=== PATIENT | male | born 1980 | race Caucasian/White ===

== ENCOUNTER → 2021-06-21 14:36 | Outpatient (BNVA) | payer BC, SELFPAY | PROVIDERS: PCP Hospitalist; Visit Provider Physician Assistant Surgical ==

== ENCOUNTER → 2021-06-26 08:17 | Outpatient (BNVA) | payer BC, SELFPAY | PROVIDERS: PCP Hospitalist; Visit Provider Surgery ==

== ENCOUNTER 2021-06-28 14:05 | Outpatient (REF) | payer BC, SELFPAY ==
--- NOTE | ~2021-06-28 | XR_ITS ---
EXAMINATION: XR CHEST CLINICAL INFORMATION: Obesity COMPARISON: Previous chest x-ray September 2019 TECHNIQUE: 2 views of the chest were obtained. FINDINGS: The cardiac and mediastinal contours are normal. The lungs are clear. There is no pleural effusion or pneumothorax. There are degenerative changes of the spine. XR/XR chest 2V IMPRESSION: No evidence for acute disease in the chest.
--- NOTE | 2021-06-28 14:26 | ECG_ITS ---
Test Reason : E66.01 Blood Pressure : / mmHG Vent. Rate : 079 BPM Atrial Rate : 079 BPM P-R Int : 170 ms QRS Dur : 090 ms QT Int : 372 ms P-R-T Axes : 002 061 018 degrees QTc Int : 426 ms Poor data quality Normal sinus rhythm Normal ECG When compared with ECG of 16-DEC-2006 04:47, Inferior leads T waves have improved Referred By: Bhavik Mathews Electronically Signed By:ERIK STANFORD MD
== END 2021-06-28 14:06 | disposition home or self-care (01) ==
LOC: HO.XRAY 14:05
PROVIDERS: PCP Hospitalist; Visit Provider Surgery
DX: E66.01 Morbid (severe) obesity due to excess calories (principal); E11.9 Type 2 diabetes mellitus without complications; I10 Essential (primary) hypertension; M54.9 Dorsalgia, unspecified
CPT/HCPCS: 71046; 93005

== ENCOUNTER 2021-06-29 09:14 | Outpatient (REF) | payer BC, SELFPAY ==
[2021-06-29 09:38] LABS: MANUAL DIFF FLAG NO
[2021-06-29 11:05] LABS: Basophils Percent Auto 0.8 % (0-2); Eosinophils Absolute Auto 0.3 X10*3/uL (0.0-0.4); Eosinophils Percent Auto 5.1 % (0-4); Hematocrit 42.5 % (42.0-52.0); Hemoglobin 14.1 g/dl (14.0-18.0); Imm Gran Abs Auto 0.01 X10*3/uL (0.00-0.03); Imm Gran Pct Auto 0.2 % (0.0-0.4); Lymphocytes Absolute Auto 1.5 X10*3/uL (1.2-4.9); Lymphocytes Percent Auto 28.4 % (20-40); Mean Corpuscular HGB Conc 33.2 g/dl (31.0-36.0); Mean Corpuscular Hemoglobin 31.3 pg (27.0-33.0); Mean Corpuscular Volume 94.2 fL (80.0-98.0); Mean Platelet Volume 10.3 fL (9.4-12.4); Monocytes Absolute Auto 0.5 X10*3/uL (0.1-1.2); Monocytes Percent Auto 10.3 % (2-11); Neutrophils Absolute Auto 2.8 x10*3/uL (2.0-8.3); Neutrophils Percent Auto 55.2 % (45-73); Platelet Count 271 X10*3/uL (160-400); Red Blood Count 4.51 X10*6/uL (4.60-5.80); Red Cell Distribution Width 12.2 % (11.0-16.0); White Blood Count 5.1 X10*3/uL (4.8-10.8)
[2021-06-29 11:23] LABS: Estimated Average Glucose 140 mg/dL; Hemoglobin A1c % 6.5 %
[2021-06-29 11:25] LABS: Alanine Aminotransferase 44 U/L (0-40); Albumin Level 4.3 g/dL (3.5-5.0); Alkaline Phosphatase 69 U/L (39-117); Anion Gap 13 (12-20); Aspartate Amino Transferase 35 U/L (5-37); Bilirubin Total 0.8 mg/dL (0.0-1.0); Blood Urea Nitrogen 9 mg/dL (9-16); C Reactive Protein 0.25 mg/dL (< or = 0.50); Calcium 9.2 mg/dL (8.4-10.2); Carbon Dioxide 27 mmol/L (22-29); Chloride 102 mmol/L (96-108); Cholesterol 142 mg/dL; Estimated Glomerular Filt Rate > 60; Glucose Random 104 mg/dL (60-115); HDL Cholesterol 41 mg/dL; Iron 118 mcg/dL (45-160); LDL Cholesterol Calculated 78 mg/dl; Percent Iron Saturation 30 % (15-50); Potassium 4.8 mmol/L (3.3-5.1); Sodium 137 mmol/L (135-145); Total Iron Binding Capacity 391 mcg/dL (228-428); Total Protein 7.4 g/dL (6.5-8.0); Triglycerides 119 mg/dL; Unsaturated Iron Binding 273 ug/dL
[2021-06-29 11:37] LABS: Ferritin 278 ng/mL (20-250); Insulin 26 uU/mL (2-29); TSH reflex Free T4 0.89 uIU/mL (0.32-4.0); Vitamin D 25-OH Total 13.7 ng/mL (>30)
[2021-07-01 03:50] LABS: Folate 18.2 ng/mL (> or = 4.0); Vitamin B12 461 pg/mL (200-900)
[2021-07-01 13:57] LABS: Calcium (PTHI) 9.1 mg/dL (8.6-10.3); PTHI 62 pg/mL (14-64)
[2021-07-02 15:46] LABS: Zinc 80 mcg/dL (60-130)
[2021-07-03 21:27] LABS: Vitamin A 36 mcg/dL (38-98)
[2021-07-04 10:35] LABS: Vitamin B1 10 nmol/L (8-30)
== END 2021-06-29 09:15 | disposition home or self-care (01) ==
LOC: HO.LAB 09:14
PROVIDERS: PCP Hospitalist; Visit Provider Surgery
DX: E66.01 Morbid (severe) obesity due to excess calories (principal); E11.9 Type 2 diabetes mellitus without complications; I10 Essential (primary) hypertension; M54.9 Dorsalgia, unspecified
CPT/HCPCS: 36415; 80053; 80061; 82306; 82607; 82728; 82746; 83036; 83525; 83540; 83970; 84425; 84443; 84590; 84630; 85025; 86140

== ENCOUNTER 2021-07-04 08:49 | Outpatient (REF) | payer BC, SELFPAY ==
[2021-07-05 09:03] LABS: H Pylori Breath Test Positive (Negative)
== END 2021-07-04 08:50 | disposition home or self-care (01) ==
LOC: HO.LNP 08:49
PROVIDERS: Surgery; PCP Hospitalist; Visit Provider Physician Assistant Surgical
DX: E66.01 Morbid (severe) obesity due to excess calories (principal); E11.9 Type 2 diabetes mellitus without complications; I10 Essential (primary) hypertension; M54.9 Dorsalgia, unspecified; Z11.0 Encounter for screening for intestinal infectious diseases
CPT/HCPCS: 83013

== ENCOUNTER → 2021-07-24 08:07 | Outpatient (BNVA) | payer BC, SELFPAY | PROVIDERS: PCP Hospitalist; Visit Provider Surgery ==

== ENCOUNTER → 2021-07-31 14:43 | Outpatient (BNVA) | payer BC, SELFPAY | PROVIDERS: PCP Hospitalist; Referring Provider Hospitalist; Visit Provider Dietitian, Registered | DX: E66.9 Obesity, unspecified (principal); E11.9 Type 2 diabetes mellitus without complications; Z68.38 Body mass index [BMI] 38.0-38.9, adult | CPT/HCPCS: 97802 ==

== ENCOUNTER 2021-08-05 15:27 | Outpatient (REF) | payer BC, SELFPAY ==
[2021-08-08 11:03] LABS: H Pylori Breath Test Negative (Negative)
== END 2021-08-05 15:28 | disposition home or self-care (01) ==
LOC: HO.LNP 15:27
PROVIDERS: PCP Hospitalist; Visit Provider Physician Assistant Surgical
DX: Z01.818 Encounter for other preprocedural examination (principal)
CPT/HCPCS: 83013

== ENCOUNTER → 2021-08-16 08:08 | Outpatient (BNVA) | payer BC, SELFPAY | PROVIDERS: PCP Hospitalist; Visit Provider Surgery ==

== ENCOUNTER 2021-08-19 07:57 | Outpatient (REF) | payer BC, SELFPAY ==
--- NOTE | ~2021-08-19 | FL_ITS ---
EXAMINATION: XR FLUOROSCOPY UPPER GI WITH AIR CLINICAL INFORMATION: Morbid to severe obesity due to excess calories. COMPARISON: None TECHNIQUE: Routine upper GI air-contrast study was performed in upright and lying position. FINDINGS: Following oral administration of thick barium and effervescent granules is normal propagation bolus from the oral cavity through the pharynx, esophagus into stomach without any evidence of obstruction, narrowing or stricture. On placing patient supine and prone lying the course, caliber and peristalsis of stomach, duodenal bulb and the sweep is normal. The mucosal pattern of the stomach and the duodenum is normal. No gastroesophageal reflux or hiatal hernia seen. There are minimal increased gastric secretions visualized. FLUOROSCOPY TIME: 1.4 minutes. DOSE AREA PRODUCT: 31.083 uGy-m2 (microgray-meter squared). FL/FL upper GI w air IMPRESSION: Unremarkable upper GI air-contrast study except for mild increased secretions.
--- NOTE | ~2021-08-19 | US_ITS ---
EXAMINATION: US COMPLETE ABDOMEN WITH LIVER ELASTOGRAPHY CLINICAL INFORMATION: Morbid obesity COMPARISON: CT abdomen pelvis 05/21/2018 TECHNIQUE: Real-time imaging of the abdominal viscera. Noninvasive ultrasound liver fibrosis assessment is performed using [employer] ElastPQ point quantification shear wave elastography (2D-SWE) with a C5-2 MHz transducer. Multiple elastography samples are obtained. FINDINGS: PANCREAS: Visualized portions of pancreas are normal in appearance. ABDOMINAL AORTA: The proximal, middle, and distal aortic segments are normal in caliber. INFERIOR VENA CAVA: Visualized portions are normal. LIVER: The liver demonstrates normal size and contour. Liver echogenicity is mildly increased diffusely. No focal lesion or intrahepatic biliary duct dilatation. The right lobe measures 16.2 cm in length. The left lobe measures 11.3 cm in length. Portal flow is hepatopedal Shear wave liver elastography median stiffness is 1.65 m/s (reference: normal median stiffness is 1.3 m/s or less). IQR/median stiffness to assess sampling precision is 0.12 (reference: good quality data set is IQR/median stiffness of 0.15 or less). GALLBLADDER: Normal. The gallbladder is physiologically distended without evidence of stones, sludge, polyps, wall thickening or pericholecystic fluid. Negative sonographic Resendiz's sign. COMMON BILE DUCT: Normal in caliber measuring 0.4 cm in diameter. RIGHT KIDNEY: Normal. No hydronephrosis. No renal calculi or focal parenchymal lesions. The kidney measures 13 cm in maximum dimension. LEFT KIDNEY: Normal. No hydronephrosis. No renal calculi or focal parenchymal lesions. The kidney measures 12.7 cm in maximum dimension. SPLEEN: Normal. The spleen measures 10.3 cm in maximum dimension. FREE FLUID: None. US/US abdomen comp w elastography IMPRESSION: 1. Liver echogenicity is mildly increased diffusely. This is a nonspecific finding but most suggestive of hepatic steatosis. Correlation with liver enzymes recommended. 2. Liver elastography: In the absence of other known clinical signs, measurements rule out compensated advanced chronic liver disease. If there are known clinical signs, further testing may be needed for confirmation. REFERENCE: Society of Radiologists in Ultrasound Liver Stiffness Thresholds (2020): LIVER STIFFNESS THRESHOLDS: *Liver Stiffness equal or less than 1.3 m/s: High probability of being normal. *Liver Stiffness less than 1.7 m/s: In the absence of other known clinical signs, rules out compensated advanced chronic liver disease. *Liver Stiffness 1.7-2.1 m/s: Suggestive of compensated advanced chronic liver disease but need further test for confirmation. *Liver Stiffness over 2.1 m/s: Rules in compensated advanced chronic liver disease. *Liver Stiffness over 2.4 m/s: Suggestive of clinically significant portal hypertension. QUALITY OF DATA SET: *IQR/Median value equal or less than 0.15 implies a quality data set. *IQR/Median value over 0.15 implies a poor quality data set. SIGNIFICANT CHANGE FROM PRIOR EXAM: Significant change if liver stiffness measurement is 10% or greater from prior exam. OTHER CONSIDERATIONS: The stage of liver fibrosis may be overestimated in the setting of acute hepatitis, liver inflammation, elevated liver function tests, hepatic vascular congestion, obstructive cholestasis, non-fasting state, and infiltrative diseases such as amyloidosis and lymphoma. In some patients with NAFLD, the liver stiffness thresholds for compensated advanced chronic liver disease may be lower. In causes other than viral hepatitis and NAFLD, liver stiffness thresholds are not well established.
== END 2021-08-19 07:58 | disposition home or self-care (01) ==
LOC: HO.US 07:57
PROVIDERS: PCP Hospitalist; Visit Provider Surgery
DX: Z01.818 Encounter for other preprocedural examination (principal); E66.01 Morbid (severe) obesity due to excess calories; E11.9 Type 2 diabetes mellitus without complications; I10 Essential (primary) hypertension; M54.9 Dorsalgia, unspecified
CPT/HCPCS: 74246; 76705; 76981

== ENCOUNTER → 2021-08-23 13:13 | Outpatient (BNVA) | payer BC, SELFPAY | PROVIDERS: PCP Hospitalist; Referring Provider Hospitalist; Visit Provider Physician Assistant ==

== ENCOUNTER 2021-08-29 09:00 | Inpatient (IN) | payer BC, SELFPAY ==
[2021-08-21 10:24] VITALS: BMI 35.7
[2021-08-22 06:23] LABS: MANUAL DIFF FLAG NO
[2021-08-22 07:32] LABS: Basophils Percent Auto 0.7 % (0-2); Eosinophils Absolute Auto 0.9 X10*3/uL (0.0-0.4); Eosinophils Percent Auto 16.9 % (0-4); Hematocrit 42.9 % (42.0-52.0); Hemoglobin 14.3 g/dl (14.0-18.0); Imm Gran Abs Auto 0.02 X10*3/uL (0.00-0.03); Imm Gran Pct Auto 0.4 % (0.0-0.4); Lymphocytes Absolute Auto 1.8 X10*3/uL (1.2-4.9); Lymphocytes Percent Auto 32.7 % (20-40); Mean Corpuscular HGB Conc 33.3 g/dl (31.0-36.0); Mean Corpuscular Hemoglobin 30.9 pg (27.0-33.0); Mean Corpuscular Volume 92.7 fL (80.0-98.0); Mean Platelet Volume 10.6 fL (9.4-12.4); Monocytes Absolute Auto 0.6 X10*3/uL (0.1-1.2); Neutrophils Absolute Auto 2.1 x10*3/uL (2.0-8.3); Neutrophils Percent Auto 38.3 % (45-73); Platelet Count 234 X10*3/uL (160-400); Red Blood Count 4.63 X10*6/uL (4.60-5.80); Red Cell Distribution Width 11.9 % (11.0-16.0); White Blood Count 5.4 X10*3/uL (4.8-10.8)
[2021-08-22 07:39] LABS: INTERNATIONAL NORM RATIO 1.1 (0.9-1.1); Prothrombin Time 12.6 SEC (9.9-13.0)
[2021-08-22 07:42] LABS: Partial Thromboplastin Time 34.6 SEC (24.1-38.0)
[2021-08-22 08:06] LABS: Alanine Aminotransferase 28 U/L (0-40); Albumin Level 4.3 g/dL (3.5-5.0); Alkaline Phosphatase 69 U/L (39-117); Anion Gap 11 (12-20); Aspartate Amino Transferase 28 U/L (5-37); Blood Urea Nitrogen 15 mg/dL (9-16); C Reactive Protein 0.54 mg/dL (< or = 0.50); Calcium 9.5 mg/dL (8.4-10.2); Carbon Dioxide 29 mmol/L (22-29); Chloride 102 mmol/L (96-108); Cholesterol 127 mg/dL; Creatinine Clr Calc Pharmacy 146.8; Estimated Glomerular Filt Rate > 60; Glucose Random 82 mg/dL (60-115); HDL Cholesterol 41 mg/dL; LDL Cholesterol Calculated 70 mg/dl; Sodium 138 mmol/L (135-145); Total Protein 7.5 g/dL (6.5-8.0); Triglycerides 81 mg/dL
[2021-08-22 08:15] LABS: Insulin 10 uU/mL (2-29); TSH reflex Free T4 1.38 uIU/mL (0.32-4.0)
[2021-08-22 08:44] LABS: Estimated Average Glucose 105 mg/dL; Hemoglobin A1c % 5.3 %
--- NOTE | 2021-08-23 23:37 | MHC.SHP ---
Pre-Procedural Eval Section A Date of Service: 08/23/21 The patient is an INPATIENT: Yes The History & Physical has been completed within 30 days and I have reviewed it.: Yes Section B Chief Complaint: obesity Relevant Family History (Specify if Yes): No Relevant Social History: None Present Medications: None Medical History: No relevant PMH History of Previous Operations: No relevant previous surgery Allergies: Allergies Allergy/AdvReac Type Severity Reaction Status Date / Time No Known Allergies Allergy Unverified 08/21/21 09:53 [No Known Allergies*] Review of Systems Sugical H&P ROS: Negative: Constitution, Cardiovascular, Respiratory, Neurological, Psychiatric, Hem-Onc, Allergic/Immunologic, Gastrointestinal, Genitourinary, Musculoskeletal, Integumentary, Endocrine and Eyes/Ears/Nose/Throat Exam Surgical H&P Exam: Normal: HEENT, Normal: Heart, Normal: Lungs, Normal: Extremities, Normal: Abdomen, Normal: Skin and Normal: Neurological Plan Diagnosis/Plan: Unchanged I have reviewed the history and physical and performed a pertinent physical examination on my patient. No changes have occurred unless specified.
--- NOTE | 2021-08-28 10:36 | P.CONAN_ITS ---
Documented by User: Janie Schofield NP 08/28/21 10:37 HPI - Anesthesia Eval Consult details Narrative: 40yo M for Gastrectomy Sleeve,EGD,poss diaphragmatic hernia,poss ventral hernia,poss open, PMFSH Active Problems Active Problems: All Active Problems (Updated 08/21/21 @ 10:16 by Asha Padilla RN) Vitamin D deficiency (Acute) Vitamin A deficiency (Acute) Vitamin B12 deficiency (Acute) Obesity (Acute) BMI 38.0-38.9,adult (Acute) Back pain (Acute) Hypertension (Acute) Non-insulin dependent type 2 diabetes mellitus (Acute) Morbid obesity (Acute) Past Medical History Medical History Back pain Hypertension Morbid obesity Non-insulin dependent type 2 diabetes mellitus Psoriasis Sleep apnea Family History Family History Mother No problems noted. Father No problems noted. Sister No problems noted. Sister No problems noted. Sister Obesity Thyroid condition Brother No problems noted. Brother No problems noted. Brother No problems noted. Son No problems noted. Surgical History Surgical History Hx of colonoscopy No significant past surgical history Social History Social History Are you a primary director of health care marketing to a significant other at home: No Do you presently have visiting nurse or other home services: No Alcohol intake: former Patient Tobacco Use Status: Former Tobacco user Quit Date: 2018 Use of substances other than those prescribed or required for medical reasons: No Have you been hit, kicked, punched, or otherwise hurt by someone within the past year? If so, by whom?: No Are you DNR?: No Advance Directives: No Advance Directives Information Provided: Yes (mailed info w/ pre-op instructions) Advance Directives on File: No Recently lost weight without trying: No How much weight loss: 24-33 pounds Eating poorly because of decreased appetite: No Nutrition screen score: 3 Nutrition Risks: No Nutritional Risk Poor oral hygiene: No Meds Allergies Allergy/AdvReac Type Severity Reaction Status Date / Time No Known Allergies Allergy Verified 08/29/21 08:49 [No Known Allergies*] Home Medications Medication Instructions Recorded Confirmed Last Taken Type acetaminophen 500 mg tablet 500 mg PO Q6H PRN 08/21/21 08/29/21 08/15/21 History esomeprazole magnesium 20 mg 20 mg PO DAILY 08/21/21 08/29/21 08/28/21 History capsule,delayed release (Nexium) Exam Exam Date and Time: August 28, 2021 1036 Height,Weight and Vital Signs: Height 5 ft 9 in Weight 109.769 kg Pertinent Lab Results Pertinent Lab Results: Laboratory Tests 08/22/21 08/22/21 08/22/21 06:20 06:20 06:20 WBC 5.4 RBC 4.63 Hgb 14.3 Hct 42.9 MCV 92.7 MCH 30.9 MCHC 33.3 RDW 11.9 Plt Count 234 MPV 10.6 Immature Gran % (Auto) 0.4 Neut % (Auto) 38.3 L Lymph % (Auto) 32.7 [place] % (Auto) 11.0 Eos % (Auto) 16.9 H Baso % (Auto) 0.7 Lymph # (Auto) 1.8 [place] # (Auto) 0.6 Eos # (Auto) 0.9 H Baso # (Auto) 0.0 Abs Immat Gran (auto) 0.02 Absolute Neuts (auto) 2.1 Absolute Nucleated RBC 0.000 Nucleated RBC % (auto) 0.0 PT 12.6 INR 1.1 APTT 34.6 Sodium 138 Potassium 4.0 Chloride 102 Carbon Dioxide 29 Anion Gap 11 L BUN 15 D Creatinine 0.80 Estim Creat Clear Calc 146.8 Estimated GFR > 60 Random Glucose 82 Estimat Average Glucose Hemoglobin A1c % Insulin Level 10 Calcium 9.5 Total Bilirubin 1.0 AST 28 ALT 28 Alkaline Phosphatase 69 C-Reactive Protein 0.54 H Total Protein 7.5 Albumin 4.3 Triglycerides 81 Cholesterol 127 LDL Cholesterol, Calc 70 HDL Cholesterol 41 TSH 1.38 Blood Type Antibody Screen 08/22/21 08/22/21 06:20 06:20 WBC RBC Hgb Hct MCV MCH MCHC RDW Plt Count MPV Immature Gran % (Auto) Neut % (Auto) Lymph % (Auto) [place] % (Auto) Eos % (Auto) Baso % (Auto) Lymph # (Auto) [place] # (Auto) Eos # (Auto) Baso # (Auto) Abs Immat Gran (auto) Absolute Neuts (auto) Absolute Nucleated RBC Nucleated RBC % (auto) PT INR APTT Sodium Potassium Chloride Carbon Dioxide Anion Gap BUN Creatinine Estim Creat Clear Calc Estimated GFR Random Glucose Estimat Average Glucose 105 Hemoglobin A1c % 5.3 Insulin Level Calcium Total Bilirubin AST ALT Alkaline Phosphatase C-Reactive Protein Total Protein Albumin Triglycerides Cholesterol LDL Cholesterol, Calc HDL Cholesterol TSH Blood Type O Positive Antibody Screen NEGATIVE Narrative Narrative: EKG 06/2021 Vent. Rate : 079 BPM ? ? Atrial Rate : 079 BPM ?? P-R Int : 170 ms? QRS Dur : 090 ms ? ? QT Int : 372 ms ? ? ? P-R-T Axes : 002 061 018 degrees ?? QTc Int : 426 ms ? Poor data quality Normal sinus rhythm Normal ECG When compared with ECG of 16-DEC-2006 04:47, Inferior leads T waves have improved Assessment and Plan Assessment Anesthesia Assessment: Chart Reviewed Documented by User: Eliza Daniel MD 08/29/21 10:10 [facility] Active Problems Active Problems: All Active Problems (Updated 08/21/21 @ 10:16 by Asha Padilla RN) Vitamin D deficiency (Acute) Vitamin A deficiency (Acute) Vitamin B12 deficiency (Acute) Obesity (Acute) BMI 38.0-38.9,adult (Acute) Back pain (Acute) Hypertension (Acute) Non-insulin dependent type 2 diabetes mellitus (Acute. No meds since June Morbid obesity (Acute) Hypoglycemia Past Medical History Medical History Back pain Hypertension Morbid obesity Non-insulin dependent type 2 diabetes mellitus Psoriasis Sleep apnea Family History Family History Mother No problems noted. Father No problems noted. Sister No problems noted. Sister No problems noted. Sister Obesity Thyroid condition Brother No problems noted. Brother No problems noted. Brother No problems noted. Son No problems noted. Family history of problems with anesthesia: No Surgical History Surgical History Hx of colonoscopy No significant past surgical history History of Problems with Anesthesia: No Social History Social History Are you a primary director of health care marketing to a significant other at home: No Do you presently have visiting nurse or other home services: No Alcohol intake: former Patient Tobacco Use Status: Former Tobacco user Quit Date: 2018 Use of substances other than those prescribed or required for medical reasons: No Have you been hit, kicked, punched, or otherwise hurt by someone within the past year? If so, by whom?: No Are you DNR?: No Advance Directives: No Advance Directives Information Provided: Yes (mailed info w/ pre-op instructions) Advance Directives on File: No Recently lost weight without trying: No How much weight loss: 24-33 pounds Eating poorly because of decreased appetite: No Nutrition screen score: 3 Nutrition Risks: No Nutritional Risk Poor oral hygiene: No Meds Allergies Allergy/AdvReac Type Severity Reaction Status Date / Time No Known Allergies Allergy Verified 08/29/21 08:49 [No Known Allergies*] Home Medications Medication Instructions Recorded Confirmed Last Taken Type acetaminophen 500 mg tablet 500 mg PO Q6H PRN 08/21/21 08/29/21 08/15/21 History esomeprazole magnesium 20 mg 20 mg PO DAILY 08/21/21 08/29/21 08/28/21 History capsule,delayed release (Nexium) Exam Height,Weight and Vital Signs: Height 5 ft 9 in Weight 109.769 kg Vital Signs Temp Pulse Resp BP Pulse Ox 08/29/21 09:00 97.1 F 61 16 116/60 100 Pertinent Lab Results Pertinent Lab Results: Laboratory Tests 08/22/21 08/22/21 08/22/21 06:20 06:20 06:20 WBC 5.4 RBC 4.63 Hgb 14.3 Hct 42.9 MCV 92.7 MCH 30.9 MCHC 33.3 RDW 11.9 Plt Count 234 MPV 10.6 Immature Gran % (Auto) 0.4 Neut % (Auto) 38.3 L Lymph % (Auto) 32.7 [place] % (Auto) 11.0 Eos % (Auto) 16.9 H Baso % (Auto) 0.7 Lymph # (Auto) 1.8 [place] # (Auto) 0.6 Eos # (Auto) 0.9 H Baso # (Auto) 0.0 Abs Immat Gran (auto) 0.02 Absolute Neuts (auto) 2.1 Absolute Nucleated RBC 0.000 Nucleated RBC % (auto) 0.0 PT 12.6 INR 1.1 APTT 34.6 Sodium 138 Potassium 4.0 Chloride 102 Carbon Dioxide 29 Anion Gap 11 L BUN 15 D Creatinine 0.80 Estim Creat Clear Calc 146.8 Estimated GFR > 60 Random Glucose 82 Estimat Average Glucose Hemoglobin A1c % Insulin Level 10 Calcium 9.5 Total Bilirubin 1.0 AST 28 ALT 28 Alkaline Phosphatase 69 C-Reactive Protein 0.54 H Total Protein 7.5 Albumin 4.3 Triglycerides 81 Cholesterol 127 LDL Cholesterol, Calc 70 HDL Cholesterol 41 TSH 1.38 Blood Type Antibody Screen 08/22/21 08/22/21 06:20 06:20 WBC RBC Hgb Hct MCV MCH MCHC RDW Plt Count MPV Immature Gran % (Auto) Neut % (Auto) Lymph % (Auto) [place] % (Auto) Eos % (Auto) Baso % (Auto) Lymph # (Auto) [place] # (Auto) Eos # (Auto) Baso # (Auto) Abs Immat Gran (auto) Absolute Neuts (auto) Absolute Nucleated RBC Nucleated RBC % (auto) PT INR APTT Sodium Potassium Chloride Carbon Dioxide Anion Gap BUN Creatinine Estim Creat Clear Calc Estimated GFR Random Glucose Estimat Average Glucose 105 Hemoglobin A1c % 5.3 Insulin Level Calcium Total Bilirubin AST ALT Alkaline Phosphatase C-Reactive Protein Total Protein Albumin Triglycerides Cholesterol LDL Cholesterol, Calc HDL Cholesterol TSH Blood Type O Positive Antibody Screen NEGATIVE Laboratory Results - last 24 hr 08/28/21 08/29/21 13:35 08:41 POC Glucose 55 L* COVID-19 ([facility]) Negative COVID-19 Clin Com See Note Airway Mallampati Class: II TM Dist: >3cm Loose/Missing/Broken Teeth: Yes (1 extraction ) Heart: RRR Lungs: ? slight wheeze Right mid Other: No recent cough, cold, fever. Patient does not smoke. Does not use inhaler. Breathing feels Ok. O2 sats 100% in RA Patient with blood sugar of 55. Asymptomatic. Rx with D5W. Repeat BS 77 Assessment and Plan Final Anesthetic Review Family History of Problems with Anesthesia: No History of Problems with Anesthesia: No NPO: Yes ASA Class: III Final Preanesthetic Review: No Changes in Pt Med Stat, Meds/Allgs Chart Reviewed, Consent Obtained/Reviewed and Anes Risks/Benef Reviewed Patient Risk: Intermediate Procedure Risk: Intermediate Assessment/Block/Sedation in SS: Assess/Block/Sedation-SS Anesthetic Plan Anesthetic Plan: GA Disposition: Standard PACU and Inp. Admit - Standard Bed
[2021-08-28 14:01] LABS: COVID-19 Test Negative (Negative); IDNOW Serial# 9DD0AD1C
[2021-08-29] VITALS (12 sets, daily range): BP systolic 116–163; BP diastolic 60–95; PULSE 61–96; RESP 14–18; TEMP 36.2–37.1; O2SAT 94–100
[2021-08-29] MEDS: Dextrose 5 % 250 ML 500 ML IV (09:00)
[2021-08-29 09:23] LABS: Glucose, Whole Blood 55 mg/dL (60-115)
[2021-08-29 10:03] LABS: Glucose, Whole Blood 77 mg/dL (60-115)
--- NOTE | 2021-08-29 10:05 | PC.NURSE ---
Patient arrived to [facility]. Stated my blood sugar was 56 this morning . Patient asymptomatic and stated he feels fine . Blood Sugar taken, results 55. Dr. Daniel notified. New order for Dextrose to be hung. See orders. Patient remained asymptomatic during infusion. Blood sugar rechecked after, results 77. Dr. Daniel notified.
[2021-08-29] MEDS: Lactated Ringers 1,000 ML 999 ML IV (10:13)
--- NOTE | 2021-08-29 13:04 | PM.DS ---
DS: Providers Provider Date of Service: 08/30/21 Date of admission: 08/29/21 09:00 Primary care physician: Saul Godinez DS: Summary Hospital Course Hospital Course: ADMITTING DIAGNOSIS: morbid obesity, HTN, NIDDM DISCHARGE DIAGNOSIS: same, s/p laparoscopic sleeve gastrectomy PAST SURGICAL HISTORY: none PROCEDURE: upper endoscopy, laparoscopic sleeve gastrectomy DISCHARGE SUMMARY: History of Present Illness: The patient is a 40 year-old woman with a BMI of 42.1 kg/m2 and associated co-morbidities as described above. The patient had extensive work-up,lost 26 lbs preoperatively and was electively scheduled for laparoscopic, possible open sleeve gastrectomy and gastropexy. Risks and complications of the surgery were discussed with the patient in advance, particularly the possibility of , pulmonary embolism, anastomotic leak, bleeding, bowel injury, GERD, cardiac, renal or pulmonary complications. The patient understood all the risks and was in agreement with the surgical plan. Hospital Course: The patient underwent an uneventful laparoscopic sleeve gastrectomy with gastropexy and repair of diaphragmatic hernia on the day of admission. Postoperatively, the patient was transferred to the surgical floor. The patient received IV Acetaminophen and IV dilaudid for pain control. Patient was started on bariatric phase 1 diet POD #0. On postoperative day one, the patient was feeling well without nausea, vomiting, fevers, or tachycardia. The patient had some mild incisional pain and the abdomen was soft. On the morning of postoperative day one, the patient was continued on 1 ounce of water or ice every half hour. During the day, the patient did fairly well, having some incisional pain, but able to ambulate adequately and to tolerate liquids well. Since the patient is doing well, we decided that the patient was ready to be discharged. The patient was given instructions to follow-up with me next week and to call my office for any fever over 101, persistent abdominal pain, nausea, vomiting, GERD, symptoms of DVT such as calf tenderness, or leg swelling, or pulmonary embolism such as chest pain or shortness of breath. The patient was also instructed to drink 40-60 ounces of liquids per day using the 1-ounce cups. The patient had been given prescriptions for Tylenol for pain, Zofran prn for nausea, and pantoprazole and carafate previously. The patient was encouraged to ambulate and use the incentive spirometer. The patient was allowed to shower, but no baths, and encouraged to stay active at home. All of these instructions were given to the patient personally. All questions were answered and the patient understood all instructions, the instructions were also given to the patient in print. Time Spent with Patient Time attestation: Total time spent providing and/or coordinating discharge services: Discharge coordination time: Less than 30 minutes Quality: Stroke Does the patient have a stroke diagnosis?: No Physical Exam Vital Signs: Vital Signs: Last Vital Signs Temp 97.1 F 08/29/21 09:00 Pulse 61 08/29/21 09:00 Resp 16 08/29/21 09:00 BP 116/60 08/29/21 09:00 Pulse Ox 100 08/29/21 09:00 BMI result Body Mass Index 35.7 DS: Data Data Completed and Pending Pending studies at discharge: Pending at discharge 08/29/21 12:14 Surgical [PTH] Routine Labs on day of discharge: Laboratory Results - last 24 hr 08/28/21 08/29/21 08/29/21 13:35 08:41 09:59 POC Glucose 55 L* 77 COVID-19 ([facility]OS) Negative COVID-19 Clin Com See Note Discharge Plan Discharge Anticipated Discharge Date/Time: 08/30/21 10:01 Patient Disposition: Home, Self-Care Discharge Diagnosis: s/p sleeve gastrectomy Referrals: Saul Godinez [Primary Care Provider] - 1 Week Discharge Medications: Continued acetaminophen 500 mg Tablet 500 mg PO Q6H PRN (Reason: Pain) 0RF pantoprazole 40 mg tablet,delayed release (DR/EC) 40 mg PO DAILY Qty: 30 2RF sucralfate 100 mg/mL suspension 10 ml PO BID Qty: 400 2RF ondansetron HCl 4 mg tablet 4 mg PO Q12H Qty: 20 0RF Discontinued cholecalciferol (vitamin D3) 125 mcg (5,000 unit) capsule 125 mcg PO DAILY Qty: 30 2RF vitamin A palmitate 10,000 unit capsule 10,000 unit PO .COMPLEX Qty: 30 1RF Rx Instructions: 10,000 units PO one per day; mecobalamin (vitamin B12) 1,000 mcg tablet,disintegrating 1,000 mcg sublingual DAILY Qty: 30 2RF Rx Instructions: place tablet under tongue and allow to dissolve for at least30 secs before swallowing esomeprazole magnesium [Nexium] 20 mg Capsule,Delayed Release(Dr/Ec) 20 mg PO DAILY 0RF polyethylene glycol 3350 [Miralax] 17 gram powder in packet 17 g PO DAILY Qty: 14 0RF Rx Instructions: Mix each packet with 8oz of water and do 7 packets on 08/27/21 and another 7 packets on 08/28/21 Discharge Orders: Discharge Order (Routine); Ordered 08/30/21 Ordered By: Bhavik Mathews Diet: other Activity on Discharge: No heavy lifting Stand Alone Forms: Patient Portal Discharge page Care Plan Goals: weight loss Health Concerns: morbid obesity Plan of Treatment: No tub baths, sex or returning to work until discussed at first post op appointment. No exercise, alcohol, tobacco or illegal drug use. Continue to use incentive spirometer hourly while awake. Walk in home for 5- 10 minutes every 2 hours during the first week. Continue phase 1 diet today and start phase 2 diet tomorrow morning. Follow all instructions in the bariatric handbook and call with any questions. 1. Please call your doctor or come back to the emergency room should any new symptoms arise. 2. You will receive a courtesy call from [facility] 24-48 hours after discharge. 3. Activity: abstain from alcohol, practice limited stair climbing, no bending, no driving, no exercise, no illicit substances, no lifting, no sex, no tub bath, no work. 4. Diet: continue as discussed with Dr. Mathews. 5. Dressing Change/Wound Care: Do not change or remove surgical dressings unless they are wet or soiled. 6. Call your doctor if: - Your temperature exceeds 101.5 F - You experience excessive pain or swelling - You have an unexpected reaction to medication - You have excessive bleeding - You experience continued vomiting/nausea - Your incision begins to separate - Your incision shows signs of infection such as increased redness, swelling, excessive pain, heat, or drainage (light blood or clear fluid is normal) 7. General instructions: No lifting greater than 5 lbs for the next 4 weeks[address] driving within 24 hours of taking narcotic pain medications. If you do not move your bowels in the next 2 days, please take milk of magnesia over the counter. Please follow the post op diet and do not advance your diet until you are seen in the office in about 2 weeks. Please walk around your home every hour or two to prevent blood clots from forming in your legs. You do not need to wake from sleeping to walk. Please sleep in a bed or couch to prevent kinking at the hips and knees. Please take your incentive spirometer (your lung mva reactor operator head) home with you and use it for the next few days to prevent pneumonias. You may shower, no hot tubs, baths or swimming pools. Please call the office with any questions or concerns such as increasing abdominal pain, fever, chills, shortness of breath, chest pain, leg pain or swelling, or redness or drainage from your incisions. Do not hesitate to contact the office with any questions at . The patient's medical history has been reviewed and they are considered low risk for post op DVT and therefore DVT prophylaxis is not considered necessary. Travel after surgery was reviewed. The patient has not disclosed any travel plans during the first 30 days after surgery and they have been advised that within the first 30 days after surgery any bus, plane, train or car travel over 2 hours in duration is contraindicated due to the possibility of developing blood clots from immobility. Any travel, needs to include periods of ambulation of 10 minutes in duration every 2 hours. The patient was instructed to discuss any plans for travel during this period with their bariatric surgeon. Assessment: stable, post op sleeve gastrectomy
--- NOTE | 2021-08-29 13:14 | P.BOP_ITS ---
Brief Operative Note Date of Service: 08/29/21 Pre-op diagnosis: Severe obesity with comorbidities (see below) Post-op diagnosis: same Procedure: INITIAL PATIENT BMI ON PRESENTATION AT OUR OFFICE: 42.2 kg/m2 LAST BMI BEFORE SURGERY: 36.3 kg/m2 COMORBIDITIES: sleep apnea on CPAP, non-insulin dependent diabetes, hypertension, back pain, liver steatosis, liver fibrosis ?The patient presented to the Weight Management Program with significant obesity that was negatively impacting the patient's comorbidities as listed above.? The program is a phased program with a special focus on preoperative medical weight management to promote substantial weight loss and prepare the patients for the second phase of the program: bariatric surgery. The patient participated in an intensive weekly lifestyle ?intervention and exercise program during which the patient ?has lost between the initial office visit and the last preoperative visit 25.7lbs, or 9.41% of initial actual body weight. It was deemed appropriate for the patient to now have bariatric surgery. In light of the current Covid-19 pandemic and the well documented strong association of obesity and increased risk of worse outcomes if infected with Covid-19 (REFERENCES: https ://pubmed.ncbi.nlm.nih.gov/46415170/ ,? https://pubmed.ncbi.nlm.nih.gov/40506650/ ), any delay in undergoing bariatric surgery may lead to the patient's worsening health condition and increased?risk of more severe Covid-19 disease if infected. In addition a recent?study from [facility] published in JOSE [facility] Surgery on 07/08/2021 ([email or web address]) found that, among patients with obesity, substantial weight loss achieved with surgery was associated with improved outcomes of COVID-19 infection. The findings suggest that obesity can be a modifiable risk factor for the severity of COVID-19 infection. In addition, the patient met the BMI-criteria for bariatric surgery based on the BMI on initial presentation. The patient should not be penalized for achieving such weight loss because ?it is not sustainable long-term without surgical intervention and it was achieved in preparation for bariatric surgery ?under my direction and based on my published research ([email or web address]).[email or web address] and? https://www.soard.org/article/[email or web address](31)54430-X/pdf ) ?that a 10% preoperative weight loss improves long-term weight loss after surgery and reduces perioperative complications.? Insurance carriers such as [facility] have endorsed my recommendations ?and have included in their policies criteria to include a 10% preoperative weight loss requirement. PROCEDURE: Esophago-gastroscopy, laparoscopic sleeve gastrectomy and laparoscopic gastropexy INDICATIONS: This is a 40 year-old male who was electively scheduled for laparoscopic, possibly open sleeve gastrectomy. The risks and complications of the procedure were discussed with the patient in advance, particularly the possibility of ; pulmonary embolism; staple line leak; bleeding; GERD; cardiac, pulmonary, or renal complications; as well as long-term problems such as insufficient weight loss, vitamin deficiency, strictures, or ulcers. The patient understood all the risks, and was in agreement to proceed with surgery. DESCRIPTION OF PROCEDURE: After informed consent was obtained from the patient, the patient was given preoperative antibiotics, and was transferred to the operating room. After successful induction of general anesthesia, pneumatic compression devices were p laced on both lower extremities. An upper endoscopy was performed next. The oropharynx and esophagus appeared to be within normal limits. There was no diaphragmatic hernia present consistent with the findings of the preoperative upper GI. The stomach was entered. Then after all fluid and air were suctioned and the stomach was fully decompressed, the scope was withdrawn and secured in the mid esophagus. The patient was then prepped and draped in the usual sterile manner, and abdominal access was established at the right upper quadrant with the Paras technique. A 12 mm blunt port was inserted, and the abdomen was insufflated with CO2 to a pressure of 15 mmHg. Under direct visualization, additional ports were placed, specifically two 5 mm Versi-step ports to the left upper quadrant, and a 5 mm Versi-Step port to the right upper quadrant. 1% lidocaine plain was used to infiltrate all port sites as well as all fascia defects. Following that, the patient was placed in a steep reverse Trendelenburg position. An additional 5 mm port was placed to the right flank for the Mediflex retractor that was used to retract the left lobe of the liver. The gastro-esophageal fat pad was opened with the ultrasonic device (Thunderbeat, Olympus) and the anterior esophagus and hiatus were exposed. The angle of His was opened with the ultrasonic device the fundus of the stomach from any diaphragmatic and splenic attachments. I then opened the gastrocolic ligament between the transverse colon and the greater curvature of the stomach with the ultrasonic device to enter the lesser sac and facilitate the ligation of the short gastric vessels. I started at a mid-point along the greater curvature and using the Thunderbeat, all short gastric vessels were divided all the way to the angle of His until the left silviano was completely dissected at its entirety. I then divided the gastro-colic ligament distally to a distance of about 3-4 cm proximal to the esophagus. The stomach was then divided transversely with one Endo SERENA-45 purple, two SERENA- 45 orange loads and four SERENA-60 articulating orange loads using the AEON stapler and loads. Every effort was made that the gastric sleeve had a tubular shape and an even caliber throughout. Once the sleeve resection was completed, the staple line of the gastric sleeve was reinforced with Hemoclips. The resected stomach was retrieved without difficulty from the Paras port. A gastropexy was then performed in order to prevent postoperative GERD and partial gastric volvulus. Several interrupted 2.0 Surgidac sutures were placed between the sleeve's staple line and the previously divided greater omentum and gastro-colic ligament using the Endo-Stitch device. ?An upper endoscopy was performed. There was no narrowing at the GE junction. The scope was easily advanced all the way to the pylorus which was clearly visualized. There was no narrowing anywhere and the sleeve's caliber was even throughout. The sleeve's staple line was inspected and there was no evidence of ischemia, bleeding or dehiscence. At that point the gastroscope was withdrawn from the patient?s mouth while we were decompressing the bowel and the stomach from any remaining air. I looked into the lesser sac to see how the sleeve was situating and it was situating well. There was no bleeding from the staple line, spleen, or short gastric vessels. The Mediflex retractor was removed, and the undersurface of the liver was inspected and there was no bleeding. The patient was placed in supine position. I closed the fascial defect of the 12 mm port site with a figure of eight #1 Polysorb suture. Then 100 cc 0.25 % Marcaine plain with 10 mg of Dexamethasone were used to infiltrate the fascial closure as well as all skin incisions. At this point, the abdomen was deflated, all ports were removed under direct vision, and no bleeding was noted from any of the port sites. The skin incisions were irrigated with saline and were closed with 4-0 absorbable monofilament sutures. Steri-Strips and OpSites were used to cover all incisions. The patient was extubated and was transferred in stable condition to the recovery room for further care. I was present and performed all mcfadden parts of the procedure. Ms. Childress was the first aid director. There were no residents to assist with this case. Robson Mathews MD, PhD, FACS Surgeon: Bhavik Mathews MD Anesthesia: GETA, local and other (TAP block) Was an Database Security Expert used for this Procedure?: Yes Database Security Expert: Archana Childress Estimated blood loss (mL): 10 IV fluids (mL): 2,500 Urine output (mL): 0 (No Garza to record) Pathology: other (Stomach) Condition: stable Disposition: PACU
--- NOTE | 2021-08-29 13:18 | PM.PNGS ---
Subjective Subjective Date of Service: 08/30/21 Interval history: Patient has mild incisional pain, but was able to ambulate and use the incentive spirometer. He is tolerating phase 1 bariatric diet Physical Exam Vital Signs: Vital Signs: Last Vital Signs Temp 98.2 F 08/29/21 13:00 Pulse 96 08/29/21 13:00 Resp 14 08/29/21 13:00 BP 156/85 H 08/29/21 13:00 Pulse Ox 99 08/29/21 13:00 BMI result Body Mass Index 35.7 GI: Inspection: Yes normal to inspection, Yes incision (clean, dry and intact) and Yes obesity Extrem: Right lower extremity: normal to inspection (no calf tenderness) Left lower extremity: normal to inspection (no calf tenderness) Objective Data Active Medications Albuterol Sulfate (Albuterol Sulfate (0.083%) 2.5 Mg/3 Ml Vial.Neb) 2.5 mg INHALE ONCE PRN PRN Reason: Wheezing Famotidine (Famotidine/Pf 20 Mg/2 Ml Vial) 20 mg IVPUSH BID LEONCIO Fentanyl (Fentanyl Citrate/Pf 100 Mcg/2 Ml Vial) 25 mcg IVPUSH Q5M PRN; Protocol PRN Reason: Pain, Moderate (Pain Scale 4-6 Hydromorphone HCl (Hydromorphone Hcl 0.5 Mg/0.5 Ml Syringe) 0.25 mg IVPUSH Q5M PRN; Protocol PRN Reason: Pain, Severe (Pain Scale 7-10) Lactated Ringer's (Lr) 1,000 mls @ 100 mls/hr IVCONT .Q10H LEONCIO Promethazine HCl 6.25 mg/ (Sodium Chloride) 50.25 mls @ 201 mls/hr IV ONCE PRN PRN Reason: Nausea and Vomiting Ondansetron HCl (Ondansetron Hcl 4 Mg/2 Ml Vial) 4 mg IVPUSH ONCE PRN PRN Reason: Nausea and Vomiting Labs CBC & Chem 7: 08/30/21 06:08 08/30/21 06:08 Labs: Laboratory Results - last 24 hr 08/28/21 08/29/21 08/29/21 13:35 08:41 09:59 POC Glucose 55 L* 77 COVID-19 ([facility]) Negative COVID-19 Clin Com See Note Procedures Date of Service Date of Service: 08/30/21 Progress Note: A&P Assessment and plan (1) S/P laparoscopic sleeve gastrectomy: Status: Acute Assessment and Plan: s/p laparoscopic sleeve gastrectomy and gastropexy Doing well Check am labs. If OK, will discharge home? (2) Obesity: Status: Acute (3) BMI 37.0-37.9, adult: Status: Acute (4) Back pain: Status: Acute (5) Hypertension: Status: Acute (6) Non-insulin dependent type 2 diabetes mellitus: Status: Acute (7) Steatosis, liver: Status: Acute (8) Liver fibrosis: Status: Acute (9) Obstructive sleep apnea on CPAP: Status: Acute Fall Risk Details Current Medications: Current Medications Albuterol Sulfate (Albuterol Sulfate (0.083%) 2.5 Mg/3 Ml Vial.Neb) 2.5 mg INHALE ONCE PRN PRN Reason: Wheezing Famotidine (Famotidine/Pf 20 Mg/2 Ml Vial) 20 mg IVPUSH BID LEONCIO Fentanyl (Fentanyl Citrate/Pf 100 Mcg/2 Ml Vial) 25 mcg IVPUSH Q5M PRN; Protocol PRN Reason: Pain, Moderate (Pain Scale 4-6 Hydromorphone HCl (Hydromorphone Hcl 0.5 Mg/0.5 Ml Syringe) 0.25 mg IVPUSH Q5M PRN; Protocol PRN Reason: Pain, Severe (Pain Scale 7-10) Lactated Ringer's (Lr) 1,000 mls @ 100 mls/hr IVCONT .Q10H LEONCIO Promethazine HCl 6.25 mg/ (Sodium Chloride) 50.25 mls @ 201 mls/hr IV ONCE PRN PRN Reason: Nausea and Vomiting Ondansetron HCl (Ondansetron Hcl 4 Mg/2 Ml Vial) 4 mg IVPUSH ONCE PRN PRN Reason: Nausea and Vomiting Time Spent With Patient Time: Total time spent is greater than 50% in coordination of care (as documented) at patient's floor/unit and/or counseling patient: Time with patient: less than 15 minutes Quality Stroke Does the patient have a stroke diagnosis?: No VTE Prior VTE?: No VTE Risk Level:: Surgical - moderate VTE Device Contraindication: N/A - Device Ordered VTE Drug Contraindication: Treatment Not Indicated
[2021-08-29 13:57] LABS: Hematocrit 44.5 % (42.0-52.0); Hemoglobin 14.4 g/dl (14.0-18.0)
[2021-08-29] MEDS: Famotidine/PF 20 MG/2 ML VIAL IVPUSH ×2 (14:05→20:22)
[2021-08-29 14:16] LABS: Anion Gap 15 (12-20); Blood Urea Nitrogen 9 mg/dL (9-16); Calcium 9.1 mg/dL (8.4-10.2); Carbon Dioxide 23 mmol/L (22-29); Chloride 104 mmol/L (96-108); Creatinine Clr Calc Pharmacy 121.1; Estimated Glomerular Filt Rate > 60; Glucose Random 87 mg/dL (60-115); Potassium 4.6 mmol/L (3.3-5.1); Sodium 137 mmol/L (135-145)
[2021-08-29] MEDS: Lactated Ringers 1,000 ML 100 ML IVCONT ×2 (14:33→23:10)
[2021-08-29 16:31] LABS: Glucose, Whole Blood 106 mg/dL (60-115)
[2021-08-29] MEDS: ceFAZolin Sodium/Dextrose,Iso 2 GM/50 ML PIGGYBACK IV (17:36)
[2021-08-29] MEDS: 0.9 % Sodium Chloride Flush 3 ML SYRINGE IVFLUSH ×2 (20:22→23:11)
[2021-08-29 20:30] LABS: Glucose, Whole Blood 153 mg/dL (60-115)
[2021-08-29] MEDS: ondansetron HCL 4 MG/2 ML VIAL IVPUSH (23:10)
[2021-08-30 03:52] VITALS: BP 133/71; PULSE 58; RESP 16; TEMP 36.4; O2SAT 94
[2021-08-30 06:27] LABS: MANUAL DIFF FLAG NO
[2021-08-30 06:33] LABS: Hemoglobin 12.7 g/dl (14.0-18.0); Imm Gran Abs Auto 0.01 X10*3/uL (0.00-0.03); Imm Gran Pct Auto 0.2 % (0.0-0.4); Lymphocytes Absolute Auto 0.7 X10*3/uL (1.2-4.9); Mean Corpuscular HGB Conc 33.4 g/dl (31.0-36.0); Mean Corpuscular Hemoglobin 30.9 pg (27.0-33.0); Mean Corpuscular Volume 92.5 fL (80.0-98.0); Mean Platelet Volume 10.5 fL (9.4-12.4); Monocytes Absolute Auto 0.6 X10*3/uL (0.1-1.2); Monocytes Percent Auto 10.5 % (2-11); Neutrophils Absolute Auto 4.2 x10*3/uL (2.0-8.3); Neutrophils Percent Auto 76.3 % (45-73); Platelet Count 222 X10*3/uL (160-400); Red Blood Count 4.11 X10*6/uL (4.60-5.80); White Blood Count 5.5 X10*3/uL (4.8-10.8)
[2021-08-30 06:43] LABS: Anion Gap 15 (12-20); Blood Urea Nitrogen 9 mg/dL (9-16); Calcium 9.1 mg/dL (8.4-10.2); Carbon Dioxide 22 mmol/L (22-29); Chloride 104 mmol/L (96-108); Creatinine Clr Calc Pharmacy 146.8; Estimated Glomerular Filt Rate > 60; Glucose Random 124 mg/dL (60-115); Potassium 4.8 mmol/L (3.3-5.1); Sodium 136 mmol/L (135-145)
[2021-08-30 07:28] VITALS: BP 130/70; PULSE 59; RESP 20; TEMP 36.2; O2SAT 95
[2021-08-30] MEDS: ondansetron HCL 4 MG/2 ML VIAL IVPUSH (07:30)
[2021-08-30] MEDS: Famotidine/PF 20 MG/2 ML VIAL IVPUSH (07:30)
[2021-08-30 08:01] LABS: Glucose, Whole Blood 124 mg/dL (60-115)
--- NOTE | 2021-08-30 08:39 | MHC.CM.PN ---
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
--- NOTE | 2021-08-30 13:33 | HO.POSTANES ---
Post Anesthesia Evaluation Post Anesthesia Evaluation Vital Signs: Vital Signs Temp Pulse Resp BP Pulse Ox 08/30/21 07:28 97.2 F 59 20 130/70 95 08/30/21 03:52 97.5 F 58 16 133/71 94 Anesthesia: General Endotracheal-GETA Mental Status: Awake Pain Control: Satisfactory Nausea/Vomiting: None Hydration: Adequate Anesthesia-Related Issues: No Anes. Related Issues
== END 2021-08-30 10:18 | disposition home or self-care (01) | DRG 403 ==
LOC: HO.SSSA 13:04 → HO.S3 14:09
PROVIDERS: Nurse Practitioner; Physician Assistant; Admitting Provider Surgery; PCP Hospitalist; Visit Provider Surgery
PROC: 0DB64Z3 Excision of Stomach, Percutaneous Endoscopic Approach, Vertical (ICD-10-PCS; CPT 43845; principal; 2021-08-29 10:20)
DX: E66.01 Morbid (severe) obesity due to excess calories (principal); K74.00 Hepatic fibrosis, unspecified; I10 Essential (primary) hypertension; K76.0 Fatty (change of) liver, not elsewhere classified; E11.9 Type 2 diabetes mellitus without complications; G47.30 Sleep apnea, unspecified; Z99.89 Dependence on other enabling machines and devices; M54.9 Dorsalgia, unspecified; Z68.36 Body mass index [BMI] 36.0-36.9, adult; Z87.891 Personal history of nicotine dependence; Z20.822 Contact with and (suspected) exposure to COVID-19; Z79.899 Other long term (current) drug therapy
CPT/HCPCS: 36415; 80048; 80053; 80061; 82947; 83036; 83525; 84443; 85014; 85018; 85025; 85610; 85730; 86140; 86850; 86900; 86901; 87635; 88307; 88342; 99024; A4649; J0131; J0690; J1100; J1170; J2250; J2405; J3010

== ENCOUNTER → 2021-09-03 14:23 | Outpatient (BNVA) | payer BC, SELFPAY | PROVIDERS: PCP Hospitalist; Visit Provider Surgery ==

== ENCOUNTER → 2021-10-07 08:11 | Outpatient (BNVA) | payer BC, SELFPAY | PROVIDERS: PCP Hospitalist; Visit Provider Surgery | DX: E66.9 Obesity, unspecified (principal); Z68.32 Body mass index [BMI] 32.0-32.9, adult; Z71.3 Dietary counseling and surveillance ==

== ENCOUNTER → 2021-11-19 08:09 | Outpatient (BNVA) | payer BC, SELFPAY | PROVIDERS: PCP Hospitalist; Visit Provider Physician Assistant Surgical | DX: E66.3 Overweight (principal) ==

== ENCOUNTER → 2022-04-16 08:40 | Outpatient (BNVA) | payer BC, SELFPAY | PROVIDERS: Visit Provider Orthopaedic Surgery | DX: M67.432 Ganglion, left wrist (principal) ==

== ENCOUNTER 2022-04-30 05:19 | Outpatient (REF) | payer BC, SELFPAY ==
--- NOTE | ~2022-04-30 | XR_ITS ---
EXAMINATION: XR SHOULDER, RIGHT CLINICAL INFORMATION: Right shoulder pain COMPARISON: None TECHNIQUE: AP external rotation, Grashey, scapular Y, and axillary views of the right shoulder. FINDINGS: The bones and soft tissues are normal. No fracture. Glenohumeral and acromioclavicular alignment is anatomic with normal joint space. No abnormal soft tissue calcifications. XR/XR shoulder RT min 2V IMPRESSION: Normal right shoulder.
== END 2022-04-30 05:20 | disposition home or self-care (01) ==
LOC: HO.HOSX 05:19
PROVIDERS: Visit Provider Physician Assistant
DX: M75.81 Other shoulder lesions, right shoulder (principal)
CPT/HCPCS: 20610; 73030; J1040

== ENCOUNTER → 2022-07-29 15:37 | Outpatient (BNVA) | payer BC, SELFPAY | PROVIDERS: Visit Provider Orthopaedic Surgery | DX: M67.432 Ganglion, left wrist (principal) ==

== ENCOUNTER 2022-07-31 07:49 | Day surgery (SDC) | payer BC, SELFPAY ==
[2022-07-25 12:24] VITALS: BMI 27.4
--- NOTE | 2022-07-30 09:43 | P.CONAN_ITS ---
Documented by User: Janie Schofield NP 07/30/22 09:46 HPI - Anesthesia Eval Consult details Narrative: 41yo M for Left Dorsal wrist Excision Ganglion s/p gastric sleeve 08/2021 with GA-ETT 7.5 PMFSH Active Problems Active Problems: All Active Problems (Updated 07/25/22 @ 12:28 by Yodit Brown RN) Obesity (Acute) BMI 37.0-37.9, adult (Acute) BMI 35.0-35.9,adult (Acute) Constipation (Acute) BMI 32.0-32.9,adult (Acute) Overweight (Acute) Ganglion cyst of dorsum of left wrist (Acute) Rotator cuff tendonitis (Acute) S/P laparoscopic sleeve gastrectomy (Acute) Obstructive sleep apnea on CPAP (Acute) GERD (gastroesophageal reflux disease) (Acute) Liver fibrosis (Acute) Steatosis, liver (Acute) Back pain (Acute) Hypertension (Acute) Non-insulin dependent type 2 diabetes mellitus (Acute) Morbid obesity (Acute) Past Medical History Medical History (Updated 07/25/22 @ 12:28 by Yodit Brown RN) Back pain BMI 38.0-38.9,adult GERD (gastroesophageal reflux disease) History of COVID-19 Hypertension Liver fibrosis Morbid obesity Non-insulin dependent type 2 diabetes mellitus Obstructive sleep apnea on CPAP Psoriasis Steatosis, liver Vitamin A deficiency Vitamin B12 deficiency Vitamin D deficiency Family History Family History Mother No problems noted. Father No problems noted. Sister No problems noted. Sister No problems noted. Sister Obesity Thyroid condition Brother No problems noted. Brother No problems noted. Brother No problems noted. Son No problems noted. Family history of problems with anesthesia: No Surgical History Surgical History (Updated 07/25/22 @ 12:20 by Yodit Brown RN) Hx of colonoscopy S/P laparoscopic sleeve gastrectomy History of Problems with Anesthesia: No Social History Social History Are you a primary acute care physician to a significant other at home: No Do you presently have visiting nurse or other home services: No Alcohol intake: former Patient Tobacco Use Status: Former Tobacco user Quit Date: 2018 Are you DNR?: No Advance Directives: No Advance Directives Information Provided: Yes Nutrition Risks: No Nutritional Risk service: No Current occupational status: employed 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 Allergies Allergy/AdvReac Type Severity Reaction Status Date / Time No Known Allergies Allergy Verified 06/11/22 15:22 [No Known Allergies*] Home Medications Medication Instructions Recorded Confirmed Last Taken Type acetaminophen 500 mg tablet 500 mg PO Q6H PRN Pain 08/21/21 03/06/22 08/15/21 History Exam Exam Date and Time: July 30, 2022 0943 Height,Weight and Vital Signs: Height 5 ft 9 in Weight 84.368 kg Assessment and Plan Assessment Anesthesia Assessment: Chart Reviewed Final Anesthetic Review Family History of Problems with Anesthesia: No History of Problems with Anesthesia: No Documented by User: Yaneli Colon MD 07/31/22 09:31 [facility] Past Medical History Medical History (Updated 07/25/22 @ 12:28 by Yodit Brown RN) Back pain BMI 38.0-38.9,adult GERD (gastroesophageal reflux disease) History of COVID-19 Hypertension Liver fibrosis Morbid obesity Non-insulin dependent type 2 diabetes mellitus Obstructive sleep apnea on CPAP Psoriasis Steatosis, liver Vitamin A deficiency Vitamin B12 deficiency Vitamin D deficiency Family History Family History Mother No problems noted. Father No problems noted. Sister No problems noted. Sister No problems noted. Sister Obesity Thyroid condition Brother No problems noted. Brother No problems noted. Brother No problems noted. Son No problems noted. 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 Allergies Allergy/AdvReac Type Severity Reaction Status Date / Time No Known Allergies Allergy Verified 06/11/22 15:22 [No Known Allergies*] Home Medications Medication Instructions Recorded Confirmed Last Taken Type acetaminophen 500 mg tablet 500 mg PO Q6H PRN Pain 08/21/21 03/06/22 08/15/21 History Exam Airway Mallampati Class: II TM Dist: >3cm Neck ROM: Full Heart: rrr Lungs: CTA Assessment and Plan Assessment Anesthesia Assessment: Anesthesia Plan Discussed Final Anesthetic Review NPO: Yes ASA Class: III Final Preanesthetic Review: No Changes in Pt Med Stat, Meds/Allgs Chart Reviewed, Consent Obtained/Reviewed and Anes Risks/Benef Reviewed Patient Risk: Low Procedure Risk: Low Anesthetic Plan Anesthetic Plan: GA and Agree w/ Assess. and Plan Disposition: Standard PACU
[2022-07-31] MEDS: Lactated Ringers 1,000 ML 100 ML IVCONT (08:16)
[2022-07-31 08:27] VITALS: BP 155/92; PULSE 70; RESP 18; TEMP 36.6; O2SAT 96
--- NOTE | 2022-07-31 08:28 | PC.NURSE ---
patient reports 102 pound weight loss since gastric sleeve one year ago. States no longer needs CPAP or takes any medications or checks blood sugar. POC not necessary today.
--- NOTE | 2022-07-31 10:39 | MHC.SHP ---
Pre-Procedural Eval Section A Date of Service: 07/31/22 The patient is an INPATIENT: No Changes since office visit: No Cold of Flu in the past 2 weeks, No New Medical Problems, No Changes in Medication and No Patient answered all questions The History & Physical has been completed within 30 days and I have reviewed it.: Yes Section B Chief Complaint: Ganglion, left wrist Allergies: Allergies Allergy/AdvReac Type Severity Reaction Status Date / Time No Known Allergies Allergy Verified 06/11/22 15:22 [No Known Allergies*] Plan I have reviewed the history and physical and performed a pertinent physical examination on my patient. No changes have occurred unless specified. Time Spent With Patient Time: Total time managing care of this patient today ____ minutes.
--- NOTE | 2022-07-31 10:39 | W.PM.OPN ---
Operative Note Operative Note Date of Service: 07/31/22 Narrative: Operative Note Narrative: Preop diagnosis: 1. Left dorsal wrist ganglion Postop diagnosis: Same Procedure: 1. Left dorsal wrist ganglion excisional biopsy Surgeon: Arielle Silva MD Anesthesia: Mac Findings: Left dorsal wrist ganglion approximately 1.5 cm in diameter, filled with clear viscous fluid consistent with a ganglion Tourniquet time: 16 minutes EBL: 5.0 ml Specimen: Left dorsal wrist ganglion Drains: None Complications: None Disposition: Brought to the recovery room in stable condition Plan: Follow-up in 10-14 days for wound check, suture removal and to check pathology Indications: The patient is a 41 year old man with a left dorsal wrist ganglion that has been unresponsive to nonoperative management. The risks and benefits of operative treatment, including but not limited to risk of damage to blood vessels, nerves, tendons, infection, recurrence, persistent pain or numbness, or need for further surgery were discussed with the patient and they wished to proceed with surgery. Procedure: Once consent was obtained patient was brought back to the operating suite and placed in the operating table in a supine position. Perioperative antibiotics and anesthesia was administered by the anesthesia team. A tourniquet was applied to the proximal aspect of the left upper extremity and the limb was prepped and draped in a standard surgical fashion. The limb was elevated exsanguinated with Esmarch bandage and the tourniquet inflated to 250 mm of mercury for a total tourniquet time of 16 minutes. A 2.0 cm longitudinal incision was made over the dorsal aspect of the left wrist, centered over the dorsal wrist ganglion. Ganglion was located over the dorsal aspect of the left wrist joint. The incision was made with a #15 blade through the skin to the subcutaneous tissues. Tenotomy scissors were then used to carefully dissect down through the subcutaneous layer to the dorsal wrist ganglion. It measured approximately 1.5 cm in diameter and was filled with clear viscous fluid consistent with a ganglion. It was carefully mobilized from the surrounding soft tissues using tenotomy and iris scissors. It's stalk passed between the EPL and 4th dorsal compartment tendons. The Bovie and bipolar electrocautery was used to cauterize the stalk to reduce risk of recurrence., and the ganglion was cut free and removed to the back table to be sent for histopathologic review. No further masses were identified. At this point the tourniquet was deflated and hemostasis obtained with a brief period of local pressure and monopolar electrocautery. Wound was irrigated with normal saline. The subcutaneous layer was closed with some 4-0 Vicryl suture, and the skin edges were reapproximated with some 5-0 nylon suture. The wound was infiltrated with some 1% lidocaine with epinephrine for postop pain control and a sterile dressing was applied. The patient appears to have tolerated the procedure well and with no complications. All digits were well vascularized conclusion of the case.
[2022-07-31 11:45] VITALS: BP 157/93; PULSE 85; RESP 16; TEMP 36.2; O2SAT 97
[2022-07-31 11:50] VITALS: BP 148/81; PULSE 74; RESP 14; O2SAT 97
[2022-07-31 11:55] VITALS: BP 154/97; PULSE 75; RESP 16; O2SAT 99
[2022-07-31 12:00] VITALS: BP 146/95; PULSE 72; RESP 14; O2SAT 100
[2022-07-31 12:15] VITALS: BP 130/86; PULSE 68; RESP 16; TEMP 36.4; O2SAT 99
== END 2022-07-31 12:42 | disposition home or self-care (01) ==
PROVIDERS: Visit Provider Orthopaedic Surgery
PROC: (CPT 25111; principal; 2022-07-31 10:10)
DX: M67.432 Ganglion, left wrist (principal); I10 Essential (primary) hypertension; G47.33 Obstructive sleep apnea (adult) (pediatric); E11.9 Type 2 diabetes mellitus without complications; K21.9 Gastro-esophageal reflux disease without esophagitis; E66.01 Morbid (severe) obesity due to excess calories; Z68.27 Body mass index [BMI] 27.0-27.9, adult; Z99.89 Dependence on other enabling machines and devices; Z87.891 Personal history of nicotine dependence
CPT/HCPCS: 25111; 88304; J0171; J0690; J1100; J1885; J2405; J2795; J3010

== ENCOUNTER → 2022-08-13 14:44 | Outpatient (BNVA) | payer BC, SELFPAY | PROVIDERS: Visit Provider Orthopaedic Surgery | DX: Z13.89 Encounter for screening for other disorder (principal) ==

== ENCOUNTER 2023-11-25 14:23 | Outpatient (AMB) | payer BC, SELFPAY ==
--- NOTE | 2023-11-25 14:33 | A.OFFVIS_ITS ---
Vital Signs 11/25/23 14:46 Height 5 ft 10 in Weight 228 lb 1 oz BMI 32.7 BP 151/100 H Blood Pressure Location Lt brachial Position Sitting Respiration 20 Pulse 92 Pulse Source Pulse Oximeter Pulse Oximetry (%) 97 Oxygen Delivery Method Room Air Intake Visit Reasons: Low Back Pain Allergies No Known Allergies [No Known Allergies*] Allergy (Verified 11/25/23 14:31) HPI Comments Details: Jin is a very pleasant 43-year-old male who presents to the office today for evaluation management of his right lower back pain. Patient reports he has been suffering with this pain since October 26 2023. He was getting off of a 3 or a plane ride, distorted walking and noticed pain to the right lower back radiating down the right leg to mid calf level. Pain is worse with walking, laying down and with lumbar extension. No pain increase with lumbar flexion. At one point his right leg gave out and he fell. He is using a cane to assist with ambulation. Unable to take nonsteroidal anti-inflammatory medications due to history of gastric sleeve surgery. Patient has been taking Tylenol with some improvement. He did recently complete steroid Dosepak with questionable improvement of his pain. He has tried muscle relaxers that did not help his pain. Patient has been going to the chiropractor, had a couple adjustments but does not feel as if it helped. He has not attempted physical therapy, he is scheduled to start on December 08. Patient denies red flag symptoms including new loss of bowel, bladder or saddle anesthesia. In terms of muscle damage condition is described as aching, spasming, stabbing, sharp, shooting, dull, tiring, exhausting, squeezing, throbbing. Pain is negatively impacting patient's walking, sleep, normal work, recreational activities, enjoyment of life, general activity and mood He has a history of type 2 diabetes, lost 100 lb and no longer required medication for it. Most recent A1c was 5.8. [facility] Medical History Back pain BMI 38.0-38.9,adult GERD (gastroesophageal reflux disease) History of COVID-19 Hypertension Liver fibrosis Morbid obesity Non-insulin dependent type 2 diabetes mellitus Obstructive sleep apnea on CPAP Psoriasis Steatosis, liver Vitamin A deficiency Vitamin B12 deficiency Vitamin D deficiency Surgical History Hx of colonoscopy S/P laparoscopic sleeve gastrectomy Family History Mother No problems noted. Father No problems noted. Sister No problems noted. Sister No problems noted. Sister Obesity Thyroid condition Brother No problems noted. Brother No problems noted. Brother No problems noted. Son No problems noted. 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 Review of Systems Const All systems reviewed & are unremarkable except as noted in HPI and below Physical Exam Vital Signs: Last Vital Signs Pulse 92 11/25/23 14:46 Resp 20 11/25/23 14:46 BP 151/100 H 11/25/23 14:46 Pulse Ox 97 11/25/23 14:46 Oxygen Delivery Method Room Air 11/25/23 14:46 BMI result Body Mass Index 32.7 General: awake, alert, oriented. Answers questions appropriately. Fully engaged in examination. Skin: warm, dry, intact HEENT: Normocephalic. Hearing intact. Cardiac: External chest normal in appearance. Respiratory: No cough, audible wheezing or stridor. Abdomen: without gross distension. MS: No obvious swelling or deformities. Able to stand on bilateral tiptoes and bilateral heels.? Able to transition from sit to stand unassisted. Ambulates with bilaterally normal heel strike and toe off Bilateral lower extremity strength 5/5, negative footdrop, negative clonus Nontender over bilateral PSIS Minimally tender midline lumbar vertebrae lumbar paraspinal muscles SLR negative bilaterally JULIO CESAR negative bilaterally Thigh thrust negative bilaterally Gaenslen negative bilaterally Decreased lumbar extension with pain increase. Full lumbar flexion without pain increase No pain with internal external rotation of right hip Neurological: Oriented to person, place, time and situation. Thought process intact. No gait abnormalities appreciated. Psychiatric: Appropriate mood and affect. Good judgment and insight. Results Reviewed Results Reviewed: 11/03/2023 x-ray hip right hip and pelvis: Normal Assessment & Plan Assessment & Plan (1) Lumbar radiculopathy: Code(s): M54.16 - Radiculopathy, lumbar region Category: Medical Plan Patient presented to the office today for evaluation management of his chronic lower back pain. History, physical exam and provocative testing consistent with lumbar radiculopathy Continue with planned for physical therapy starting 12/09/2023 Continue with treatment at chiropractor as planned New Rx: Diclofenac topical twice daily as needed Follow-up in the office after completing 6-8 sessions of physical therapy, if no improvement in pain will plan for MRI lumbar spine without contrast. All questions and concerns answered, patient agreed to the plan. Follow up after PT, sooner if needed. Medications: New diclofenac sodium 3% apply to most painful area twice daily as needed for pain 1 appl topical BID 100 grams 0RF Coding Level of Care Code New Pt Level 4 (43518) Diagnoses Lumbar radiculopathy M54.16
[2023-11-25 14:46] VITALS: BP 151/100; PULSE 92; RESP 20; O2SAT 97; BMI 32.7
== END 2023-11-25 15:03 | disposition home or self-care (01) ==
PROVIDERS: PCP Nurse Practitioner Family; Visit Provider Registered Nurse Emergency
DX: M54.16 Radiculopathy, lumbar region (principal)
CPT/HCPCS: 99204

== ENCOUNTER → 2023-11-25 14:23 | Outpatient (BNVA) | payer BC, SELFPAY | PROVIDERS: PCP Nurse Practitioner Family; Visit Provider Registered Nurse Emergency ==

== ENCOUNTER 2024-01-08 13:56 | Outpatient (AMB) | payer BC, SELFPAY ==
--- NOTE | 2024-01-08 14:05 | MHC.OFFVIS ---
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 by: Self / Same As Patient Allergies No Known Allergies [No Known Allergies*] Allergy (Verified 01/08/24 14:12) HPI Comments Details: Patient presents back to the office today for follow-up Has been active in physical therapy with some improvement, he would like to extend for more visits Reports pain has improved but continues with some neuropathy, tingling pins and needles down the right leg to the ankle He has been using topical diclofenac with minimal improvemen Prior: Jin is a very pleasant 43-year-old male who presents to the office today for evaluation management of his right lower back pain. Patient reports he has been suffering with this pain since October 26 2023. He was getting off of a 3 or a plane ride, distorted walking and noticed pain to the right lower back radiating down the right leg to mid calf level. Pain is worse with walking, laying down and with lumbar extension. No pain increase with lumbar flexion. At one point his right leg gave out and he fell. He is using a cane to assist with ambulation. Unable to take nonsteroidal anti-inflammatory medications due to history of gastric sleeve surgery. Patient has been taking Tylenol with some improvement. He did recently complete steroid Dosepak with questionable improvement of his pain. He has tried muscle relaxers that did not help his pain. Patient has been going to the chiropractor, had a couple adjustments but does not feel as if it helped. He has not attempted physical therapy, he is scheduled to start on December 08. Patient denies red flag symptoms including new loss of bowel, bladder or saddle anesthesia. In terms of muscle damage condition is described as aching, spasming, stabbing, sharp, shooting, dull, tiring, exhausting, squeezing, throbbing. Pain is negatively impacting patient's walking, sleep, normal work, recreational activities, enjoyment of life, general activity and mood He has a history of type 2 diabetes, lost 100 lb and no longer required medication for it. Most recent A1c was 5.8. [facility] Medical History Back pain BMI 38.0-38.9,adult GERD (gastroesophageal reflux disease) History of COVID-19 Hypertension Liver fibrosis Morbid obesity Non-insulin dependent type 2 diabetes mellitus Obstructive sleep apnea on CPAP Psoriasis Steatosis, liver Vitamin A deficiency Vitamin B12 deficiency Vitamin D deficiency Surgical History Hx of colonoscopy S/P laparoscopic sleeve gastrectomy Family History Mother No problems noted. Father No problems noted. Sister No problems noted. Sister No problems noted. Sister Obesity Thyroid condition Brother No problems noted. Brother No problems noted. Brother No problems noted. Son No problems noted. 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 Review of Systems Const All systems reviewed & are unremarkable except as noted in HPI and below Physical Exam Vital Signs: Last Vital Signs Pulse 85 01/08/24 14:10 BP 178/104 H 01/08/24 14:10 Pulse Ox 98 01/08/24 14:10 Oxygen Delivery Method Room Air 01/08/24 14:10 BMI result Body Mass Index 33.6 General: awake, alert, oriented. Answers questions appropriately. Fully engaged in examination. Skin: warm, dry, intact HEENT: Normocephalic. Hearing intact. Cardiac: External chest normal in appearance. Respiratory: No cough, audible wheezing or stridor. Abdomen: without gross distension. MS: No obvious swelling or deformities. Able to stand on bilateral tiptoes and bilateral heels.? Able to transition from sit to stand unassisted. Ambulates with bilaterally normal heel strike and toe off Bilateral lower extremity strength 5/5, negative footdrop, negative clonus Tender over midline lumbar vertebrae and lumbar paraspinal muscles Neurological: Oriented to person, place, time and situation. Thought process intact. No gait abnormalities appreciated. Psychiatric: Appropriate mood and affect. Good judgment and insight. Results Reviewed Results Reviewed: 11/03/2023 x-ray hip right hip and pelvis: Normal Assessment & Plan Assessment & Plan (1) Lumbar radiculopathy: Code(s): M54.16 - Radiculopathy, lumbar region Category: Medical (2) Neuropathy: Comment: right lower extremity Code(s): G62.9 - Polyneuropathy, unspecified Category: Medical Plan Patient presented to the office today for evaluation management of his chronic lower back pain. History, physical exam and provocative testing consistent with lumbar radiculopathy Continue with physical therapy, order placed to extend the number of visits Continue with Diclofenac topical twice daily as needed MRI lumbar spine ordered without contrast. Back pain with radiation down the right leg to include numbness, tingling, pins and needles of the right lower extremity. EMG ordered for evaluation All questions and concerns answered, patient agreed to the plan. Follow up after MRI, sooner if needed. Orders: Orders NE electromyogram (EMG) Today G62.9 - Polyneuropathy, unspecified MR lumbar spine wo con Today M54.16 - Radiculopathy, lumbar region PT Evaluation and Treatment Today M54.16 - Radiculopathy, lumbar region Coding Level of Care Code Est Pt Level 3 (12882) Diagnoses Lumbar radiculopathy M54.16 Neuropathy G62.9
[2024-01-08 14:10] VITALS: BP 178/104; PULSE 85; O2SAT 98; BMI 33.6
== END 2024-01-08 14:40 | disposition home or self-care (01) ==
PROVIDERS: PCP Nurse Practitioner Family; Visit Provider Registered Nurse Emergency
DX: M54.16 Radiculopathy, lumbar region (principal); G62.9 Polyneuropathy, unspecified
CPT/HCPCS: 99213

== ENCOUNTER → 2024-01-08 13:56 | Outpatient (BNVA) | payer BC, SELFPAY | PROVIDERS: PCP Nurse Practitioner Family; Visit Provider Registered Nurse Emergency ==

== ENCOUNTER 2024-01-26 08:11 | Outpatient (REF) | payer BC, SELFPAY ==
--- NOTE | 2024-01-26 08:12 | EMG_ITS ---
Right tibial and peroneal motor studies were performed. Right superficial peroneal, sural, median, and lateral plantar mixed sensory studies were performed. Tibial H-reflex was obtained and needle examination was performed. IMPRESSION: [id number] sensory peripheral neuropathy affecting the foot and leg with no evidence of radiculopathy. MD LIBIA Alston/ANNA / [id number]
== END 2024-01-26 08:12 | disposition home or self-care (01) ==
LOC: HO.NEURO 08:11
PROVIDERS: PCP Nurse Practitioner Family; Visit Provider Registered Nurse Emergency
DX: M79.604 Pain in right leg (principal); M79.605 Pain in left leg; R20.0 Anesthesia of skin
CPT/HCPCS: 95886; 95910

== ENCOUNTER 2024-02-15 16:00 | Outpatient (RCR) | payer BC, SELFPAY | END 2024-05-09 08:40 | disposition home or self-care (01) | LOC: HO.PT 16:00 | PROVIDERS: PCP Nurse Practitioner Family; Visit Provider Nurse Practitioner Family | DX: M54.16 Radiculopathy, lumbar region (principal); M54.41 Lumbago with sciatica, right side | CPT/HCPCS: 97012; 97110; 97112; 97161; 97530 ==

== ENCOUNTER 2024-02-18 14:54 | Outpatient (REF) | payer BC, SELFPAY ==
--- NOTE | ~2024-02-18 | MR_ITS ---
EXAMINATION: MR LUMBAR SPINE WITHOUT CONTRAST CLINICAL INFORMATION: Low back pain, right-sided radiculopathy COMPARISON: None available. TECHNIQUE: MRI of the lumbar spine was obtained using routine sequences without the administration of intravenous contrast. FINDINGS: This examination assumes the presence of 5 lumbar type vertebral bodies. For the purposes of this examination, the L5-S1 intervertebral disc space is visualized on axial series 5 image 24. The normal lumbar lordosis is preserved. Shallow dextrocurvature of the lumbar spine. No significant spondylolisthesis. Schmorl's node along the inferior endplate of L3. Otherwise, lumbar vertebral body heights are maintained. Trace endplate edema at L5-S1. Mild perifacet edema at L4-L5, likely on the basis of facet arthropathy. The conus medullaris and cauda equina nerve roots are unremarkable; the conus terminates at the level of L1. The spinal canal appears narrowed on a congenital basis. L1-L2: No significant spinal canal or neural femoral stenosis. L2-L3: Mild facet degeneration. The spinal canal and neural foramina are patent. L3-L4: Disc bulge and facet arthropathy with ligamentum flavum redundancy. The spinal canal appears mildly narrowed on a congenital basis. Mild narrowing of the bilateral neural foramen. L4-L5: Disc bulge with right foraminal/far lateral disc protrusion. Facet arthropathy with ligamentum flavum redundancy. There is severe spinal canal stenosis with crowding of the cauda equina nerve roots and narrowing of the lateral recesses. Severe narrowing of the right neural foramen with exiting nerve root compression in the neural foramina and far lateral space. Moderate to severe narrowing of the left neural foramen with exiting nerve root impingement. L5-S1: Disc bulge with left subarticular/proximal foraminal disc protrusion. Facet arthropathy with ligamentum flavum redundancy. Prominent epidural fat with tapering of the thecal sac. Asymmetric narrowing of the left lateral recess with mass effect on the descending left S1 nerve root. There is moderate narrowing of the right neural foramen. Moderate to severe narrowing of the left neural foramen. 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 Severe spinal canal stenosis at L4-L5 with crowding of the cauda equina nerve roots. Severe right neural foraminal stenosis at L4-L5 secondary to a right foraminal disc protrusion. There is associated exiting nerve root compression in the neural foramina and far lateral space. Moderate to severe left neural foraminal stenosis at L4-L5 and L5-S1. Electronically signed by: Joey Monterroso MD 03/11/2024 08:53 PM EDT
== END 2024-02-18 14:55 | disposition home or self-care (01) ==
LOC: HO.MRI 14:54
PROVIDERS: PCP Nurse Practitioner Family; Visit Provider Registered Nurse Emergency
DX: M54.16 Radiculopathy, lumbar region (principal)
CPT/HCPCS: 72148

== ENCOUNTER 2024-03-18 09:57 | Outpatient (AMB) | payer BC, SELFPAY ==
[2024-03-18 10:02] VITALS: BP 164/89; PULSE 75; O2SAT 97; BMI 34.0
--- NOTE | 2024-03-18 10:02 | MHC.OFFVIS ---
Vital Signs 03/18/24 10:02 Height 5 ft 10 in Weight 237 lb BMI 34.0 BP 164/89 H Blood Pressure Location Lt brachial Position Sitting Pulse 75 Pulse Source Pulse Oximeter Pulse Oximetry (%) 97 Oxygen Delivery Method Room Air Intake Visit Reasons: Discuss MRI Results Allergies No Known Allergies [No Known Allergies*] Allergy (Verified 03/18/24 10:03) HPI Comments Details: Jin presents back to the office today for follow-up lower back pain, review recent MRI MRI reviewed results as per below Pain today is rated as a 2/10, reports pain gets worse as the day goes on By the evening he will be ?hunched over? and in significant pain Continues with pain, tingling and pins and needles down the right leg Denies red flag symptoms including new loss of bowel, bladder or saddle anesthesia. Prior: Patient presents back to the office today for follow-up Has been active in physical therapy with some improvement, he would like to extend for more visits Reports pain has improved but continues with some neuropathy, tingling pins and needles down the right leg to the ankle He has been using topical diclofenac with minimal improvement Intake note: Jin is a very pleasant 43-year-old male who presents to the office today for evaluation management of his right lower back pain. Patient reports he has been suffering with this pain since October 26 2023. He was getting off of a 3 or a plane ride, distorted walking and noticed pain to the right lower back radiating down the right leg to mid calf level. Pain is worse with walking, laying down and with lumbar extension. No pain increase with lumbar flexion. At one point his right leg gave out and he fell. He is using a cane to assist with ambulation. Unable to take nonsteroidal anti-inflammatory medications due to history of gastric sleeve surgery. Patient has been taking Tylenol with some improvement. He did recently complete steroid Dosepak with questionable improvement of his pain. He has tried muscle relaxers that did not help his pain. Patient has been going to the chiropractor, had a couple adjustments but does not feel as if it helped. He has not attempted physical therapy, he is scheduled to start on December 08. Patient denies red flag symptoms including new loss of bowel, bladder or saddle anesthesia. In terms of muscle damage condition is described as aching, spasming, stabbing, sharp, shooting, dull, tiring, exhausting, squeezing, throbbing. Pain is negatively impacting patient's walking, sleep, normal work, recreational activities, enjoyment of life, general activity and mood He has a history of type 2 diabetes, lost 100 lb and no longer required medication for it. Most recent A1c was 5.8. [facility] Medical History Back pain BMI 38.0-38.9,adult GERD (gastroesophageal reflux disease) History of COVID-19 Hypertension Liver fibrosis Morbid obesity Non-insulin dependent type 2 diabetes mellitus Obstructive sleep apnea on CPAP Psoriasis Steatosis, liver Vitamin A deficiency Vitamin B12 deficiency Vitamin D deficiency Surgical History Hx of colonoscopy S/P laparoscopic sleeve gastrectomy Family History Mother No problems noted. Father No problems noted. Sister No problems noted. Sister No problems noted. Sister Obesity Thyroid condition Brother No problems noted. Brother No problems noted. Brother No problems noted. Son No problems noted. 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 Review of Systems Const All systems reviewed & are unremarkable except as noted in HPI and below Physical Exam Vital Signs: Last Vital Signs Pulse 75 03/18/24 10:02 BP 164/89 H 03/18/24 10:02 Pulse Ox 97 03/18/24 10:02 Oxygen Delivery Method Room Air 03/18/24 10:02 BMI result Body Mass Index 34.0 General: awake, alert, oriented. Answers questions appropriately. Fully engaged in examination. Skin: warm, dry, intact HEENT: Normocephalic. Hearing intact. Cardiac: External chest normal in appearance. Respiratory: No cough, audible wheezing or stridor. Abdomen: without gross distension. MS: No obvious swelling or deformities. Able to transition from sit to stand unassisted. Ambulates with bilaterally normal heel strike and toe off Bilateral lower extremity strength 5/5, negative footdrop, negative clonus Neurological: Oriented to person, place, time and situation. Thought process intact. No gait abnormalities appreciated. Psychiatric: Appropriate mood and affect. Good judgment and insight. Results Reviewed Results Reviewed: 02/18/24 MRI LS This examination assumes the presence of 5 lumbar type vertebral bodies. For the purposes of this examination, the L5-S1 intervertebral disc space is visualized on axial series 5 image 24. The normal lumbar lordosis is preserved. Shallow dextrocurvature of the lumbar spine. No significant spondylolisthesis. Schmorl's node along the inferior endplate of L3. Otherwise, lumbar vertebral body heights are maintained. Trace endplate edema at L5-S1. Mild perifacet edema at L4-L5, likely on the basis of facet arthropathy. The conus medullaris and cauda equina nerve roots are unremarkable; the conus terminates at the level of L1. The spinal canal appears narrowed on a congenital basis. L1-L2: No significant spinal canal or neural femoral stenosis. L2-L3: Mild facet degeneration. The spinal canal and neural foramina are patent. L3-L4: Disc bulge and facet arthropathy with ligamentum flavum redundancy. The spinal canal appears mildly narrowed on a congenital basis. Mild narrowing of the bilateral neural foramen. L4-L5: Disc bulge with right foraminal/far lateral disc protrusion. Facet arthropathy with ligamentum flavum redundancy. There is severe spinal canal stenosis with crowding of the cauda equina nerve roots and narrowing of the lateral recesses. Severe narrowing of the right neural foramen with exiting nerve root compression in the neural foramina and far lateral space. Moderate to severe narrowing of the left neural foramen with exiting nerve root impingement. L5-S1: Disc bulge with left subarticular/proximal foraminal disc protrusion. Facet arthropathy with ligamentum flavum redundancy. Prominent epidural fat with tapering of the thecal sac. Asymmetric narrowing of the left lateral recess with mass effect on the descending left S1 nerve root. There is moderate narrowing of the right neural foramen. Moderate to severe narrowing of the left neural foramen. IMPRESSION: The spinal canal appears narrowed on a congenital basis. Severe spinal canal stenosis at L4-L5 with crowding of the cauda equina nerve roots. Severe right neural foraminal stenosis at L4-L5 secondary to a right foraminal disc protrusion. There is associated exiting nerve root compression in the neural foramina and far lateral space. Moderate to severe left neural foraminal stenosis at L4-L5 and L5-S1. Assessment & Plan Assessment & Plan (1) Lumbar radiculopathy: Code(s): M54.16 - Radiculopathy, lumbar region Category: Medical (2) Spinal stenosis: Code(s): M48.00 - Spinal stenosis, site unspecified Category: Medical (3) Neuropathy: Comment: right lower extremity Code(s): G62.9 - Polyneuropathy, unspecified Category: Medical Plan Ashish presented back to the office today for follow-up, review of recent MRI MRI reviewed, results as per above Referral placed for neuro spine eval All questions and concerns answered, patient agreed to the plan. Follow up after neuro spine, sooner if needed. Orders: Referrals Neuro Spine Referral M48.00 - Spinal stenosis, site unspecified, M54.16 - Radiculopathy, lumbar region Coding Level of Care Code Est Pt Level 3 (88143) Complex EM visit Add On G2211 Diagnoses Lumbar radiculopathy M54.16 Spinal stenosis M48.00 Neuropathy G62.9
== END 2024-03-18 10:11 | disposition home or self-care (01) ==
PROVIDERS: PCP Nurse Practitioner Family; Visit Provider Registered Nurse Emergency
DX: M54.16 Radiculopathy, lumbar region (principal); M48.00 Spinal stenosis, site unspecified; G62.9 Polyneuropathy, unspecified
CPT/HCPCS: 99213

== ENCOUNTER → 2024-03-18 09:57 | Outpatient (BNVA) | payer BC, SELFPAY | PROVIDERS: PCP Nurse Practitioner Family; Visit Provider Registered Nurse Emergency ==

== ENCOUNTER 2024-03-28 12:43 | Outpatient (AMB) | payer BC, SELFPAY ==
--- NOTE | 2024-03-28 13:02 | A.SPINEOV_ITS ---
Intake Visit Reasons: lumbar radiculopathy Intake Note: Mr. Meyer is here today c/o low back pain. 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 He is a pleasant 43-year-old male who comes in today with a chief complaint of low back pain with shooting pain into his bilateral lower extremities, right worse than left. When describing the shooting pain he states it starts in his posterior buttocks, shoots over his lateral thigh, and terminates near his gastrocnemius. He states this initially began 10/26/2023 after a flight back from the [facility]. He states he had a very active vacation in which he was zip lining, hiking, and enjoying his time outdoors. After the long flight back, he was unable to stand up from his seat and needed to be brought out of the airplane in a wheelchair he states he was largely unable to ambulate due to right-sided leg pain for the next 2 months. Thankfully is back to walking somewhat normally, however still reports significant right-sided leg pain with newer onset (last 4 weeks) left-sided leg pain as well. She reports some tingling/numbness over his right lower extremity, in his concerned that this feels as though it is worsening. He has tried several [id number] medications including Tylenol, and pain patches/creams. He is unable to tolerate NSAIDs as he had a previous gastric sleeve surgery. He has recently completed a course of physical therapy which he did not find particularly helpful. He denies any bowel or bladder incontinence. He denies any numbness or tingling around the perineum. PMH: Gastric sleeve surgery. Obstructive sleep apnea on CPAP. Hypertension. Non insulin-dependent type 2 diabetes. GERD. Social hx: Patient does not smoke, reports no substance use. Medications: Tylenol, diclofenac. Allergies: NKDA. Physical exam: The patient has 5/5 strength in his upper and lower extremities. He does elicit some pain to full strength testing of the bilateral iliopsoas. He is able to ambulate well without a noticeably antalgic gait. He rises from a seated position without much difficulty. (-) Madrigal's, (-) clonus, (-) bilateral straight leg raise. Imaging review: MRI completed here at [facility] shows a broad- based central disc protrusion at L4-5 causing severe central canal and bilateral foraminal stenosis at this level. There is also notable left-sided foraminal stenosis which I would grade as severe at L5-S1. Impression: Jin is a pleasant 43-year-old male who comes in today with a chief complaint of low back pain with shooting pain into his bilateral lower extremities. He states that his right leg is worse in his left, and has been ongoing since October. His left leg only started hurting him about 4 weeks ago. When discussing his symptoms they sound acute in nature, likely related to his prolonged seated plane flight. I believe the symptomatic segment his L4-5. Given that the patient has largely exhausted conservative measures, this is something that Dr. Lacy would typically offer a lumbar decompression for given the severity of compression seen at the exiting foramen. I will discuss this with Dr. Lacy later this week and contact Jin shortly thereafter. We did discuss what a procedure such as this would look like if it were offered, and he seems amenable. Thank you for allowing us to care for your patient. The total time spent with this visit with this patient was 45 minutes reviewing history, physical exam, MRI imaging review, and implementation of treatment plan or further diagnostic testing Kervin Lacy MD,PhD [facility] Coding Level of Care Code New Pt Level 4 (48040) Diagnoses Lumbar radiculopathy M54.16
== END 2024-03-28 14:24 | disposition home or self-care (01) ==
PROVIDERS: PCP Nurse Practitioner Family; Referring Provider Registered Nurse Emergency; Visit Provider Physician Assistant
DX: M54.16 Radiculopathy, lumbar region (principal)
CPT/HCPCS: 99204

== ENCOUNTER → 2024-03-28 12:43 | Outpatient (BNVA) | payer BC, SELFPAY | PROVIDERS: PCP Nurse Practitioner Family; Visit Provider Physician Assistant ==

== ENCOUNTER 2024-05-06 14:51 | Outpatient (AMB) | payer BC, SELFPAY ==
--- NOTE | 2024-05-06 14:53 | A.OFFVIS_ITS ---
Vital Signs 3 05/06/24 14:54 Height 5 ft 10 in Weight 240 lb BMI 34.4 BP 141/79 H Blood Pressure Location Lt brachial Position Sitting Pulse 88 Intake Visit Reasons: Colonoscopy Screening Intake Note: Patient new consult for 2nd pre colonoscopy screening. Patient cc: diarrhea, and denies any other GI issues. 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 He is referred by [facility] self Seb. PMX YASMANI Obesity Cervical degenerative disc disease with radiculopathy External hemorrhoids Psoriasis Left shoulder impingement syndrome History of diabetes stabilize since weight loss GERD Hypertension Constipation * SURGICAL HISTORY Sleeve gastrectomy Colonoscopy * ALLERGIES: NKDA * [place] LABS: none TODAY'S VISIT He had a prior scope for diarrhea that was neg. Currently she denies any bowel or upper GI problems.. YASMANI has resolved with wt loss, and she denies any cardiac problems NO ID problems There are no prior problems with anesthesia or sedation NO FHX crc or polyps. [facility]LY [facility] Medical History Sleep apnea Spinal stenosis Neuropathy Liver fibrosis Steatosis, liver Psoriasis BMI 38.0-38.9,adult Vitamin B12 deficiency Vitamin A deficiency Vitamin D deficiency Back pain Hypertension Non-insulin dependent type 2 diabetes mellitus Morbid obesity Surgical History S/P laparoscopic sleeve gastrectomy Hx of colonoscopy Family History Mother No problems noted. Father No problems noted. Sister No problems noted. Sister No problems noted. Sister Obesity Thyroid condition Brother No problems noted. Brother No problems noted. Brother No problems noted. Son No problems noted. 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 Review of Systems Const Denies fatigue, Denies fever(s), Denies night sweats, Denies poor appetite and Denies weight loss ENT Reports Normal hearing present, Denies dysphagia, Denies odynophagia, Denies throat swelling and Denies tongue swelling Card Reports no additional complaints Resp Reports no additional complaints GI Details: Denies abdominal pain, Denies melena, Denies bloating, Denies hematochezia, Denies constipation, Denies GI cramping, Denies dysphagia, Denies excessive flatus, Denies early satiety, Denies heartburn, Denies diarrhea, Denies nausea, Denies odynophagia, Denies vomiting and Denies hematemesis Skin/Breast Denies pruritus, Denies lesions, Denies rash and Denies jaundice Neuro Reports Normal hearing present and Denies Abnormal speech present Endo Denies fatigue Aller/Immun Denies throat swelling and Denies tongue swelling Physical Exam Vital Signs: Last Vital Signs Pulse 88 05/06/24 14:54 BP 141/79 H 05/06/24 14:54 BMI result Body Mass Index 34.4 Const General: cooperative, no acute distress, well developed and well groomed Nutritional Appearance: well nourished and obese Orientation/consciousness: oriented to person, oriented to place and oriented to time Limitations: No language barrier HEENT Head: Yes normocephalic and Yes atraumatic Eyes General: appearance normal, both eyes and all related structures Pupils: Equal, round and reactive pupils present Neck Neck: Yes normal visual inspection and Yes no lymphadenopathy Thyroid: Thyroid normal Resp Effort & Inspection: normal respiratory effort and able to speak in complete sentences Auscultation: clear to auscultation bilaterally Cardio Rate: regular rate Rhythm: regular rhythm Heart sounds: Normal, physiologic split S2 sound present Peripheral pulses: radial pulses present and posterior tibial pulses present GI Inspection: No distended, No Abdominal panniculus present, Yes obesity and Yes striae Palpation (GI): Soft to palpation, nontender, no guarding, not rigid and No hepatosplenomegaly present Percussion: Yes normal to percussion Auscultation: normal bowel sounds Rectal Exam - Male: Yes deferred Abdomen image: 2 1. surgical scars 2. 3. Skin General skin exam: no rashes or lesions noted, turgor normal, skin not dry, no jaundice, No spider nevi and no striae Rashes: no rashes Nails: normal Neuro General: oriented to person, oriented to place and oriented to time Cranial nerves: Yes Equal, round and reactive pupils present and Yes Normal hearing present Speech: No Abnormal speech present Extrem General: Yes normal to inspection, No clubbing, No cyanosis and No edema Psych Appearance: grossly normal and well kempt Mental Status: mental status grossly normal Speech and movement: Normal speech and movement present Affect: normal affect Attitude: cooperative Thought process: Normal thought process present and not confabulating Thought content: Normal thought content present Insight: Good insight present (Psych) Judgement: Good judgement present (Psych) Assessment & Plan Assessment & Plan (1) Pre-op examination: Code(s): Z01.818 - Encounter for other preprocedural examination Category: Medical (2) Obstructive sleep apnea on CPAP: Code(s): G47.33 - Obstructive sleep apnea (adult) (pediatric); Z99.89 - Dependence on other enabling machines and devices Category: Medical Plan He had a prior scope for diarrhea that was neg. Currently she denies any bowel or upper GI problems.. YASMANI has resolved with wt loss, and she denies any cardiac problems NO ID problems There are no prior problems with anesthesia or sedation NO FHX crc or polyps. Orders: Orders 2 Complete Blood Count Auto Diff 05/06/24 Z01.818 - Encounter for other preprocedural examination, G47.33 - Obstructive sleep apnea (adult) (pediatric), Z99.89 - Dependence on other enabling machines and devices Comprehensive Met. Panel 05/06/24 Z01.818 - Encounter for other preprocedural examination, G47.33 - Obstructive sleep apnea (adult) (pediatric), Z99.89 - Dependence on other enabling machines and devices Colonoscopy - GI Use Only 05/06/24 Z01.818 - Encounter for other preprocedural examination, G47.33 - Obstructive sleep apnea (adult) (pediatric), Z99.89 - Dependence on other enabling machines and devices Medications: New 2 peg 3350-electrolytes 236-22.74-6.74 -5.86 gram (Golytely) until fecal effluent is clear; do not exceed a total volume of 2,000 mL 240 mL PO Q10M 4,000 mL 0RF 1 day Z12.11 - Encounter for screening for malignant neoplasm of colon Coding Level of Care Code Est Pt Level 3 (96511) Diagnoses Pre-op examination Z01.818 Obstructive sleep apnea on CPAP G47.33; Z99.89
[2024-05-06 14:54] VITALS: BP 141/79; PULSE 88; BMI 34.4
== END 2024-05-06 15:21 | disposition home or self-care (01) ==
PROVIDERS: PCP Nurse Practitioner Family; Visit Provider Nurse Practitioner
DX: Z01.818 Encounter for other preprocedural examination (principal); Z12.11 Encounter for screening for malignant neoplasm of colon
CPT/HCPCS: S0285

== ENCOUNTER → 2024-05-06 14:51 | Outpatient (BNVA) | payer BC, SELFPAY | PROVIDERS: PCP Nurse Practitioner Family; Visit Provider Nurse Practitioner ==

== ENCOUNTER 2024-05-19 06:56 | Day surgery (SDC) | payer BC, SELFPAY ==
[2024-05-03 12:09] VITALS: BP 141/72; PULSE 88; RESP 20; O2SAT 97; BMI 34.8
--- NOTE | 2024-05-03 12:27 | HO.ANESPROP2 ---
Documented by User: Janie Schofield NP 05/11/24 13:29 HPI - Anesthesia Eval Consult details Narrative: 43yo M for Bilateral L4-5 Lumbar Decompression - Right side approach, 05/19/24 No recent illness No CP/SOB with minimal activity r/t back pain YASMANI and NIDDM resolved post gastric sleeve ~ 2021 [facility] Active Problems Active Problems: All Active Problems Spinal stenosis (Acute) Neuropathy (Acute) Lumbar radiculopathy (Acute) Rotator cuff tendonitis (Acute) Ganglion cyst of dorsum of left wrist (Acute) Overweight (Acute) BMI 32.0-32.9,adult (Acute) Constipation (Acute) BMI 35.0-35.9,adult (Acute) GERD (gastroesophageal reflux disease) (Acute) BMI 37.0-37.9, adult (Acute) Obesity (Acute) S/P laparoscopic sleeve gastrectomy (Acute) Obstructive sleep apnea on CPAP (Acute) Liver fibrosis (Acute) Steatosis, liver (Acute) Back pain (Acute) Hypertension (Acute) Non-insulin dependent type 2 diabetes mellitus (Acute) Morbid obesity (Acute) Past Medical History Medical History Sleep apnea Spinal stenosis Neuropathy Liver fibrosis Steatosis, liver Psoriasis BMI 38.0-38.9,adult Vitamin B12 deficiency Vitamin A deficiency Vitamin D deficiency Back pain Hypertension Non-insulin dependent type 2 diabetes mellitus Morbid obesity Family History Family History Mother No problems noted. Father No problems noted. Sister No problems noted. Sister No problems noted. Sister Obesity Thyroid condition Brother No problems noted. Brother No problems noted. Brother No problems noted. Son No problems noted. Family history of problems with anesthesia: No Surgical History Surgical History S/P laparoscopic sleeve gastrectomy Hx of colonoscopy History of Problems with Anesthesia: No Social History Social History Are you a primary reproductive healthcare assistant to a significant other at home: No Do you presently have visiting nurse or other home services: No Alcohol intake: former Patient Tobacco Use Status: Former Tobacco user Tobacco use type: Cigarette Years Smoked: 28 Use of substances other than those prescribed or required for medical reasons: No Have you been hit, kicked, punched, or otherwise hurt by someone within the past year? 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 Allergies Allergy/AdvReac Type Severity Reaction Status Date / Time No Known Allergies Allergy Verified 05/19/24 07:11 [No Known Allergies*] Home Medications ?Medication ?Instructions ?Recorded ?Confirmed ?Last Taken ?Type acetaminophen 500 mg tablet 1,500 mg PO BID PRN Pain 08/21/21 05/03/24 08/15/21 History metformin 500 mg tablet,extended 500 mg PO DAILY 05/06/24 Unknown History release 24 hr Exam Height,Weight and Vital Signs: Height 5 ft 9.29 in Weight 107.955 kg Last Vital Signs Pulse 88 05/03/24 12:09 Resp 20 05/03/24 12:09 BP 141/72 H 05/03/24 12:09 Pulse Ox 97 05/03/24 12:09 O2 Del Method Room Air 05/03/24 12:09 Airway Loose/Missing/Broken Teeth: Yes (Right upper molar cracked) Heart: RRR Lungs: CTAB Assessment and Plan Assessment Anesthesia Assessment: Anesthesia Plan Discussed and PAT Visit Final Anesthetic Review Family History of Problems with Anesthesia: No History of Problems with Anesthesia: No Documented by User: Eliza Daniel MD 05/19/24 07:52 HPI - Anesthesia Eval Consult details Narrative: 43yo M for Bilateral L4-5 Lumbar Decompression - Right side approach, 05/19/24 No recent illness No CP/SOB with minimal activity r/t back pain YASMANI resolved post gastric sleeve ~ 2021 [facility] Active Problems Active Problems: All Active Problems Spinal stenosis (Acute) Neuropathy (Acute) Lumbar radiculopathy (Acute) Rotator cuff tendonitis (Acute) Ganglion cyst of dorsum of left wrist (Acute) Constipation (Acute) BMI 35.0-35.9,adult (Acute) GERD (gastroesophageal reflux disease) (Acute) Obesity (Acute) S/P laparoscopic sleeve gastrectomy (Acute) Obstructive sleep apnea on CPAP (Acute)- not since bariatric surgery 2021 Liver fibrosis (Acute) Steatosis, liver (Acute) Back pain (Acute) Hypertension (Acute) Non-insulin dependent type 2 diabetes mellitus (Acute) Past Medical History Medical History Sleep apnea Spinal stenosis Neuropathy Liver fibrosis Steatosis, liver Psoriasis BMI 38.0-38.9,adult Vitamin B12 deficiency Vitamin A deficiency Vitamin D deficiency Back pain Hypertension Non-insulin dependent type 2 diabetes mellitus Morbid obesity Family History Family History Mother No problems noted. Father No problems noted. Sister No problems noted. Sister No problems noted. Sister Obesity Thyroid condition Brother No problems noted. Brother No problems noted. Brother No problems noted. Son No problems noted. Family history of problems with anesthesia: No Surgical History Surgical History S/P laparoscopic sleeve gastrectomy Hx of colonoscopy History of Problems with Anesthesia: No Social History Social History Are you a primary reproductive healthcare assistant to a significant other at home: No Do you presently have visiting nurse or other home services: No Alcohol intake: former Patient Tobacco Use Status: Former Tobacco user Tobacco use type: Cigarette Years Smoked: 28 Use of substances other than those prescribed or required for medical reasons: No Have you been hit, kicked, punched, or otherwise hurt by someone within the past year? 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 Allergies Allergy/AdvReac Type Severity Reaction Status Date / Time No Known Allergies Allergy Verified 05/19/24 07:11 [No Known Allergies*] Home Medications ?Medication ?Instructions ?Recorded ?Confirmed ?Last Taken ?Type acetaminophen 500 mg tablet 1,500 mg PO BID PRN Pain 08/21/21 05/03/24 08/15/21 History metformin 500 mg tablet,extended 500 mg PO DAILY 05/06/24 Unknown History release 24 hr Exam Height,Weight and Vital Signs: Height 5 ft 9.29 in Weight 107.955 kg Last Vital Signs Pulse 88 05/03/24 12:09 Resp 20 05/03/24 12:09 BP 141/72 H 05/03/24 12:09 Pulse Ox 97 05/03/24 12:09 O2 Del Method Room Air 05/03/24 12:09 Vital Signs Temp Pulse Resp BP Pulse Ox O2 Del Method 05/19/24 07:38 96.9 F 83 15 141/93 H 95 Room Air Pertinent Lab Results Pertinent Lab Results: Lab Results 05/19/24 Range/Units 07:33 POC Glucose 149 H (60-115) mg/dL Airway Mallampati Class: II TM Dist: >3cm Neck ROM: Limited (A little stiffness in neck this morning) Loose/Missing/Broken Teeth: Yes (Cracked tooth top right back. Missing some teeth left back. Denies loose teeth) Heart: RRR Lungs: CTAB Assessment and Plan Assessment Anesthesia Assessment: Anesthesia Plan Discussed, PAT Visit and Chart Reviewed Final Anesthetic Review Family History of Problems with Anesthesia: No History of Problems with Anesthesia: No NPO: Yes ASA Class: III Final Preanesthetic Review: No Changes in Pt Med Stat, Meds/Allgs Chart Reviewed, Consent Obtained/Reviewed and Anes Risks/Benef Reviewed Patient Risk: Intermediate Procedure Risk: Intermediate Assessment/Block/Sedation in SS: Assess/Block/Sedation-SS Anesthetic Plan Anesthetic Plan: GA Disposition: Standard PACU
--- NOTE | 2024-05-19 07:05 | P.HPSUR_ITS ---
Pre-Procedural Eval Section A - 24 Hr Update-Section A only Date of Service: 05/19/24 The patient is an INPATIENT: No Changes since office visit: No Cold of Flu in the past 2 weeks, No New Medical Problems, No Changes in Medication and No Patient answered all questions The patient has been examined within 24 hours of the surgical procedure. The History & Physical has been completed within 30 days and I have reviewed it.: No Section B - Complete if H&P > 30 days Chief Complaint: Radiculopathy, lumbar region Allergies: Allergies Allergy/AdvReac Type Severity Reaction Status Date / Time No Known Allergies Allergy Verified 05/06/24 14:53 [No Known Allergies*] Review of Systems Sugical H&P ROS: Negative: Constitution, Cardiovascular, Respiratory, Neurological, Psychiatric, Hem-Onc, Allergic/Immunologic, Gastrointestinal, Genitourinary, Musculoskeletal, Integumentary, Endocrine and Eyes/Ears/No se/Throat Exam Surgical H&P Exam: Normal: HEENT, Normal: Heart, Normal: Lungs, Normal: Extremities, Normal: Abdomen, Normal: Skin and Normal: Neurological Plan Diagnosis/Plan: Unchanged right sided approache for L4-5 decompression Time Spent With Patient Time: Total time managing care of this patient today ___5_ minutes.
[2024-05-19 07:12] VITALS: BMI 35.3
[2024-05-19] MEDS: Gabapentin 300 MG CAPSULE PO (07:20)
[2024-05-19] MEDS: methocarbamoL 750 MG TABLET PO (07:20)
--- NOTE | 2024-05-19 07:35 | PM.DS ---
DS: Providers Provider Date of Service: 05/19/24 Date of discharge: 05/19/24 Primary care physician: Pina Mathews NP Admitting clinician: Sunny Lacy DS: Diagnosis Discharge Diagnosis (1) Spinal stenosis: Status: Acute DS: Summary Time Attestation Discharge Coordination Time (in mins): 5 Quality: Safe Use of Opioids Does Pt have an Active Cancer Diagnosis on the Problem List?: No Quality: Stroke Does the patient have a stroke diagnosis?: No Physical Exam Vital Signs: Vital Signs: Last Vital Signs Pulse 88 05/03/24 12:09 Resp 20 05/03/24 12:09 BP 141/72 H 05/03/24 12:09 Pulse Ox 97 05/03/24 12:09 O2 Del Method Room Air 05/03/24 12:09 BMI result Body Mass Index 35.3 DS: Data Data Completed and Pending Completed studies during hospitalization [Text1]: Procedures Excision of Stomach, Percutaneous Endoscopic Approach, Vertical (08/29/21) Discharge Plan Discharge Patient Disposition: Home, Self-Care Referrals: Pina Mathews NP [Primary Care Provider] - 1 Week Discharge Medications: New docusate sodium [Colace] 100 mg capsule 100 mg PO BID Qty: 20 0RF oxycodone 5 mg tablet 5 mg PO Q4H PRN (Reason: pain) Qty: 20 0RF Rx Instructions: Partial Fill upon patient request. Continued acetaminophen 500 mg Tablet 1,500 mg PO BID PRN (Reason: Pain) metformin 500 mg tablet extended release 24 hr 500 mg PO DAILY peg 3350-electrolytes [Golytely] 236-22.74-6.74 -5.86 gram recon soln 240 ml PO Q10M 1 Days Qty: 4000 0RF Rx Instructions: until fecal effluent is clear; do not exceed a total volume of 2,000 mL Discharge Orders: Discharge Order (Routine); Ordered 05/19/24 Ordered By: Jean Claude De Jesus Diet: Advance to usual diet Activity on Discharge: As tolerated Activity Restrictions/Additional Instructions: After your spinal surgery we ask you to observe the following restrictions/guidelines: Activity: It is normal to feel some discomfort as you increase your activity, but that will improve with time. We ask you avoid heavy lifting or acitivities that cause pain. As a general rule, 8lbs is a safe limit for lifting right after surgery. Walk as much as you feel comfortable but not to exhaustion. You will feel extra tired the first few days after surgery. Stay well hydrated. It is OK to walk up and down stairs You may return to driving when you are off narcotics (such as vicodin, oxycodone, dilaudid, etc), and you are back to normal functional capacity. If you have any concerns please check with office before driving. Return to work is specific to each patient and each surgery, so please speak with your doctor/PA at first follow up. Please bring paperwork such as FMLA at that time if you need it filled out. Medications: For optimum pain control, it is best to start with a combination of 500 mg of Tylenol every 4 hours with 600 mg of Motrin every 8 hours, and use narcotics as needed in between for breakthrough pain. We will give you a short supply of narcotics after surgery (usually one weeks worth). If you need more please call the office but do not use more than prescribed. You will need to give our office 48 hours notice if you need narcotics refilled and we do not fill narcotics on weekends or evenings. If you are on a narcotic, it is a good idea to take a stool softener such as colace or senna to avoid constipation If you take blood thinner such as aspirin, Plavix, Coumadin, Effient, Eliquis etc for conditions such as Afib, DVT, Pulmonary embolus, coronary disease, stents etc please speak with your surgeon about specific details as to when you can resume these medications. You can resume NSAIDs on post op day 1 (eg: Motrin, Naproxen, etc). Follow up: Please call the office, , after surgery to arrange a 3 week follow up for wound check. Wound Care: You may remove your dressing on the first day after surgery. ?You may ?leave open to air. Please do not remove the steri strips underneath. they will fall off on their own in one week. IT IS NORMAL FOR THE WOUND TO OOZE OR BE BLOODY FOR A FEW DAYS AFTER SURGERY. ?IF THIS HAPPENS JUST PLACE NEW DRESSING OVER IT TO AVOID STAINING CLOTHES. You may shower on post op day # 1 We ask that you do not let the water soak the wound. If it does get wet, just towel dry lightly. Please do not scrub your incision or place any type of chemical/ointment on the wound. No tub baths, pools or jacuzzis for one month. If you have any leaking or redness from your wound, or fevers, please call office Print Language: [place]
[2024-05-19 07:38] VITALS: BP 141/93; PULSE 83; RESP 15; TEMP 36.1; O2SAT 95
[2024-05-19] MEDS: Lactated Ringers 1,000 ML 100 ML IVCONT (07:38)
[2024-05-19 07:45] LABS: Glucose, Whole Blood 149 mg/dL (60-115)
--- NOTE | 2024-05-19 09:51 | P.OP_ITS ---
Operative Note Operative Note Date of Service: 05/19/24 Narrative: Preoperative Diagnosis: L4-5 spinal stenosis/lateral recess stenosis/neural foraminal stenosis Operation: L4-5 bilateral Laminotomy, Partial facetectomy and foraminotomy with use of microscope Consent Informed Consent was obtained for this operation. I have explained the nature, purpose and benefits of the operation. I have discussed the risks and benefit of the operation including possible complications or adverse events with patient/family. Alternative(s) were discussed with the patient with their relative benefits and risks as well as the consequences of not accepting the operation were included in obtaining consent. Surgeon: FELICITAS VELASCO MD, PHD Procedure Assisted By: Jean Claude Rascon Description of Procedure This patient is suffering from neurogenic claudication due to L4-5 lumbar stenosis.. The patient was offered a decompression. The procedure complications were explained. The patient was consented. The patient was brought to the operating room and endotracheally intubated. The patient was turned in prone position on the Jalen frame. Prep and drape was done followed by timeout. The Physician civil engineering assistant provided access. A mid lumbar incision was made followed by release of the paravertebral muscle on the right side to expose the L4-5 laminae and facet joints. An intraoperative x-ray was obtained to confirm the correct level. The microscope was brought in. I took over the procedure. The high-speed drill was used to do a L4-5 laminotomy until flavum ligament was reached. A #2 Kerrison was used to expand the laminotomy near flush to the pedicles and to include a partial facetectomy. The flavum ligament was opened and resected with a #3 Kerrison to decompress the underlying thecal sac. The flavum ligament was removed to decompress the lateral recess and the exiting L5 nerve roots. A long nerve hook could be easily passed along the medial side of the pedicle as a sign of adequate decompression. The patient was turned contralaterally. The spinous process was undercut and it this way I was able to which consult ID and to remove flavum recommend to further decompress the thecal sac. There was no major central spinal stenosis. The microscope was removed. Hemostasis was done. The physician civil engineering assistant close the Incision in 2 layers. Steri-Strips were used to approximate incision. An OpSite with Tegaderm was used to cover the incision. All sponge needle counts were correct. Patient was extubated and transported in stable is to recovery room. Anesthesia: General Estimated Blood Loss (ml): 25 Complications: None Duration of Surgery: Under 60 Minutes Postoperative Plan: Discharge to home
[2024-05-19 10:16] VITALS: BP 143/84; PULSE 113; RESP 16; TEMP 36.6; O2SAT 99
[2024-05-19 10:20] VITALS: BP 141/75; PULSE 111; RESP 16; O2SAT 99
[2024-05-19 10:25] VITALS: BP 157/88; PULSE 105; RESP 16; O2SAT 99
[2024-05-19 10:30] VITALS: BP 166/87; PULSE 103; RESP 16; O2SAT 100
[2024-05-19 10:45] VITALS: BP 157/87; PULSE 100; RESP 16; TEMP 36.4; O2SAT 100
== END 2024-05-19 11:05 | disposition home or self-care (01) ==
PROVIDERS: PCP Nurse Practitioner Family; Visit Provider Neurological Surgery
PROC: (CPT 63047; principal; 2024-05-19 09:00)
DX: M48.062 Spinal stenosis, lumbar region with neurogenic claudication (principal); M54.16 Radiculopathy, lumbar region; I10 Essential (primary) hypertension; E11.9 Type 2 diabetes mellitus without complications; K21.9 Gastro-esophageal reflux disease without esophagitis; G47.33 Obstructive sleep apnea (adult) (pediatric); Z79.84 Long term (current) use of oral hypoglycemic drugs; Z79.899 Other long term (current) drug therapy; Z99.89 Dependence on other enabling machines and devices; Z98.84 Bariatric surgery status
CPT/HCPCS: 63047; 82947; J0131; J0690; J1100; J1885; J2003; J2371; J2405; J2704; J3010

== ENCOUNTER → 2024-05-19 06:56 | Outpatient (BNV) | payer BC, SELFPAY | PROVIDERS: PCP Nurse Practitioner Family; Visit Provider Neurological Surgery | DX: M48.062 Spinal stenosis, lumbar region with neurogenic claudication (principal) | CPT/HCPCS: 63047; 99499 ==

== ENCOUNTER 2024-06-13 13:24 | Outpatient (REF) | payer BC, SELFPAY | END 2024-06-13 13:25 | disposition home or self-care (01) | LOC: HO.HOSX 13:24 | PROVIDERS: PCP Nurse Practitioner Family; Visit Provider Physician Assistant | DX: M48.00 Spinal stenosis, site unspecified (principal) | CPT/HCPCS: 72100 ==

== ENCOUNTER 2024-06-13 13:24 | Outpatient (AMB) | payer BC, SELFPAY ==
--- NOTE | 2024-06-13 13:31 | A.SPINEOV_ITS ---
Intake Visit Reasons: 1st post op Intake Note: Mr. Meyer is here today for his 1st post op visit. 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 He reports that directly after surgery he felt better day by day. Unfortunately he has had a recent flare-up of his back pain, with some associated tingling in his right foot. This has only been ongoing for the past few days, prior to which he was ambulating around the store and doing things outside of the home without issue. What he is describing sounds a lot like a flare-up of postoperative inf lammation. He has not been taking any narcotic pain control has been relying solely on Tylenol since his surgery. We discussed the possibility of starting prednisone course to help reduce the postoperative inflammation, however he states he can not take this medication as he had gastric sleeve surgery. No new neurological deficits. Patient is able to ambulate well with the assistance of a cane, rises from a seated position without difficulty. He is able to get up onto the examination table without issue. Incision site is closed, well healing, with no signs of drainage. I would like to order add him a set of lumbar x-rays today to be done after he leaves the office. I will review of for any signs of instability. Assuming there is no instability I believe it is likely just a flare-up of postoperative inflammation as stated above. He was encouraged to reach back out to us next week if it does not subside as I would like to see him sooner than our usual 6 weeks follow-up for a 2nd postoperative visit. Kervin Lacy MD,PhD [facility] Orders: Orders XR lumbar spine 4V min Today M48.00 - Spinal stenosis, site unspecified Coding Level of Care Code Global (00209) Diagnoses Spinal stenosis M48.00
== END 2024-06-13 14:25 | disposition home or self-care (01) ==
PROVIDERS: PCP Nurse Practitioner Family; Visit Provider Physician Assistant
DX: M48.00 Spinal stenosis, site unspecified (principal)
CPT/HCPCS: 99024

== ENCOUNTER 2024-08-25 14:00 | Outpatient (AMB) | payer BC, SELFPAY ==
--- NOTE | 2024-08-25 14:03 | HO.SPINEOV ---
Intake Visit Reasons: 2nd post op Intake Note: Mr. Meyer is here today for his 2nd post op. Cryptographic Vulnerability Analyst Required: No Allergies No Known Allergies [No Known Allergies*] Allergy (Verified 08/25/24 14:07) Assessment & Plan Assessment & Plan (1) Spinal stenosis: Code(s): M48.00 - Spinal stenosis, site unspecified Category: Medical Plan Mr Meyer is here about 4 months out from his L4-5 bilateral decompression. Pt reports he has seen significant improvement in his feelings of numbness in the legs. However, he is still continuing to have significant left-sided back pain radiating into his left buttock down his left hamstring. He has overall been pleased with how things went on the right side but this left side issue is continuing to neck him. He will have to sit down if he is walking for even short distances to make it go away. Any time he is working with his back in terms of doing simple household activities he will have severe pain the next day. He seems to be sleeping okay right now. He has taken [id number] anti-inflammatories and Tylenol. He has been working with the physical therapy exercises that he was trained to do before surgery. However, there is some limitations because they do give him more pain. On exam he has full strength in his wound is healed up nicely. We discussed activity guidelines, restrictions expectations after lumbar decompression. Because his pain has not improved on the left side I would like to do a postoperative MRI. I can call him with the results. Total amount of time spent in this visit was 20 minutes in discussion of symptoms, ordering MRI imaging and subsequent plan of care Jean Claude Lacy MD,PhD [facility] Orders: Orders MR lumbar spine wo/w con Today M48.00 - Spinal stenosis, site unspecified Coding Level of Care Code Est Pt Level 3 (32439) Diagnoses Spinal stenosis M48.00
== END 2024-08-25 14:41 | disposition home or self-care (01) ==
PROVIDERS: PCP Nurse Practitioner Family; Visit Provider Physician Assistant
DX: M48.00 Spinal stenosis, site unspecified (principal)
CPT/HCPCS: 99213

== ENCOUNTER → 2024-08-25 14:00 | Outpatient (BNVA) | payer BC, SELFPAY | PROVIDERS: PCP Nurse Practitioner Family; Visit Provider Physician Assistant ==

== ENCOUNTER → 2024-09-09 08:27 | Outpatient (BNV) | payer BC, SELFPAY | PROVIDERS: PCP Nurse Practitioner Family; Visit Provider Radiology Vascular & Interventional Radiology | DX: M48.061 Spinal stenosis, lumbar region without neurogenic claudication (principal) | CPT/HCPCS: 72158 ==

== ENCOUNTER 2024-09-09 08:28 | Outpatient (REF) | payer BC, SELFPAY ==
--- NOTE | ~2024-09-09 | MR_ITS ---
CLINICAL HISTORY: M48.00 - Spinal stenosis, site unspecified; L4-5 DECOMPRESSION LEFT LEG SCHUYLER MR lumbar spine with and without gadolinium Comparison: MR/IA/SR - MR LUMBAR SPINE WO CON - 02/18/24 15:49 EDT Findings: Normal alignment. No acute fracture or pathologic bone lesion. Schmorl's node noted along the inferior endplate of L3. The conus terminates normally at L1. Cauda equina are unremarkable. Somewhat diffuse disc space narrowing and disc desiccation most pronounced at L4-5 and L5-S1. Abnormal enhancement, likely postsurgical, along the decompression bed at L4-L5 posteriorly. There is no epidural abscess. There is mild dural enhancement. Retroperitoneal soft tissues are unremarkable. Individual levels: T12-L3: Unremarkable. L3-L4: Small posterior disc protrusion and facet hypertrophy. Mild bilateral neural foraminal narrowing. L4-L5: Moderately severe central canal stenosis, related to facet hypertrophy, ligamentum flavum thickening and a posterior disc protrusion. There is also severe bilateral neural foraminal narrowing at this level. L5-S1: Left eccentric disc protrusion with facet hypertrophy. Moderate left neural foraminal narrowing. No significant central canal stenosis. Impression: At L4-L5, there is moderately severe central canal stenosis and severe bilateral neural foraminal narrowing. Postsurgical soft tissue enhancement without evidence of abscess or hematoma. Additional multilevel degenerative changes. This document has been electronically signed by: Colton Snow MD on 09/09/2024 11:53:32
[2024-09-09] MEDS: gadobutroL 10 ML VIAL IVPUSH (09:10)
== END 2024-09-09 08:29 | disposition home or self-care (01) ==
LOC: HO.MRI 08:28
PROVIDERS: PCP Nurse Practitioner Family; Visit Provider Physician Assistant
DX: M48.00 Spinal stenosis, site unspecified (principal)
CPT/HCPCS: 72158; A9585

== ENCOUNTER 2024-09-23 11:41 | Outpatient (AMB) | payer BC, SELFPAY ==
--- NOTE | 2024-09-23 11:41 | HO.SPINEOV ---
Intake Visit Reasons: [place] follow up[place] [facility] [place] Note: Mr. Meyer is here to F/u on the results of his MRI. 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 He has had significant improvement in his preoperative leg pains and the numbness. He has gone from using a walker to now being able to mobilize on his own independently. The patient is very pleased about that. What he is dealing with right now is he has a centralized low back pain that he points out his right below his incision. He had that before surgery as well but was hopeful it would go away. I ordered a postoperative MRI here at [place] and despite the radiology report suggesting there still severe stenosis at L4-5, the areas well decompressed on the T1 with jaxon 0 images. The foramen are wide open as well. In terms of his back pain and the origin of that, there is some degenerative disc disease but as we know these things can often be incidental findings and I do not see any significant Modic endplate changes disc herniation or spondylolisthesis to suggests there is an easy surgical solution. It could be something like facet arthropathy or musculo fascial pain. At this point, I think we have done what we can do for him from the standpoint of surgery. I did recommend he follow-up with [facility] in pain management if he wanted to consider doing possible further interventional pain management. Total amount of time spent in this visit was 20 minutes in discussion of symptoms, lumbar MRI imaging results and subsequent plan of care Jean Claude Lacy MD,PhD [facility] Coding Level of Care Code Est Pt Level 3 (95770) Diagnoses Spinal stenosis M48.00
== END 2024-09-23 12:20 | disposition home or self-care (01) ==
LOC: HO.HNS 11:41
PROVIDERS: PCP Nurse Practitioner Family; Visit Provider Physician Assistant
DX: M48.00 Spinal stenosis, site unspecified (principal)
CPT/HCPCS: 99213

== ENCOUNTER → 2024-09-23 11:41 | Outpatient (BNVA) | payer BC, SELFPAY | PROVIDERS: PCP Nurse Practitioner Family; Visit Provider Physician Assistant ==

== ENCOUNTER 2024-11-09 14:56 | Outpatient (AMB) | payer BC, SELFPAY ==
--- NOTE | 2024-11-09 15:03 | A.OFFVIS_ITS ---
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 He had decompression surgery at L4-5 last May, which initially relieved his symptoms, but pain recurred shortly after. Despite a follow-up MRI indicating improvements, he experienced pain radiating down the right leg, described as severe frazier splints. The pain limits his activity, making walks risky without leaning on burciaga for support. Pain around the coccyx worsens after sitting for over 20 minutes. Physical therapy failed to improve his condition. Current right leg pain, radiating from surgical site to the frazier, is severe, leading to the consideration of a spinal cord stimulator trial or steroid injection. - Onset and Timing: October 26 2023 and Post-surgery at L4-5 in May, with recurring pain shortly after initial relief. - Quality and Character: Described as frazier splints from the back extending down the right leg. - Primary Location: Right leg. - Areas of Radiation: From the surgical scar down the right leg to the frazier. - Exacerbating Factors: Walking, sitting beyond 20 minutes. - Relieving Factors: None effective to date, except minimal improvement post initial surgery. - Interferes with: Daily activities; requires wall support for mobility, hinders ability to stand or sit comfortably beyond 20 minutes. - Affect: The patient's mood and mental well-being are impacted by chronic pain, contributes to feelings of helplessness. - Analgesia: Engaged in physical therapy without improvement; considering steroid injections or spinal cord stimulation for long-term relief. - Adverse Effects: None noted from current medications as specific analgesics were not discussed. - Activities of Daily Living: Severely impacted; unable to walk without support, sitting and standing are limited in duration. - Aberrant Drug Related Behaviors: No signs of medication misuse or early refills mentioned. Prior: Jin presents back to the office today for follow-up lower back pain, review recent MRI MRI reviewed results as per below Pain today is rated as a 2/10, reports pain gets worse as the day goes on By the evening he will be ?hunched over? and in significant pain Continues with pain, tingling and pins and needles down the right leg Denies red flag symptoms including new loss of bowel, bladder or saddle anesthesia. Prior: Patient presents back to the office today for follow-up Has been active in physical therapy with some improvement, he would like to extend for more visits Reports pain has improved but continues with some neuropathy, tingling pins and needles down the right leg to the ankle He has been using topical diclofenac with minimal improvement Intake note: Jin is a very pleasant 43-year-old male who presents to the office today for evaluation management of his right lower back pain. Patient reports he has been suffering with this pain since October 26 2023. He was getting off of a 3 or a plane ride, distorted walking and noticed pain to the right lower back radiating down the right leg to mid calf level. Pain is worse with walking, laying down and with lumbar extension. No pain increase with lumbar flexion. At one point his right leg gave out and he fell. He is using a cane to assist with ambulation. Unable to take nonsteroidal anti-inflammatory medications due to history of gastric sleeve surgery. Patient has been taking Tylenol with some improvement. He did recently complete steroid Dosepak with questionable improvement of his pain. He has tried muscle relaxers that did not help his pain. Patient has been going to the chiropractor, had a couple adjustments but does not feel as if it helped. He has not attempted physical therapy, he is scheduled to start on December 08. Patient denies red flag symptoms including new loss of bowel, bladder or saddle anesthesia. In terms of muscle damage condition is described as aching, spasming, stabbing, sharp, shooting, dull, tiring, exhausting, squeezing, throbbing. Pain is negatively impacting patient's walking, sleep, normal work, recreational activities, enjoyment of life, general activity and mood He has a history of type 2 diabetes, lost 100 lb and no longer required medication for it. Most recent A1c was 5.8. [facility] Medical History Sleep apnea Spinal stenosis Neuropathy Liver fibrosis Steatosis, liver Psoriasis BMI 38.0-38.9,adult Vitamin B12 deficiency Vitamin A deficiency Vitamin D deficiency Back pain Hypertension Non-insulin dependent type 2 diabetes mellitus Morbid obesity Surgical History S/P laparoscopic sleeve gastrectomy Hx of colonoscopy Family History Mother No problems noted. Father No problems noted. Sister No problems noted. Sister No problems noted. Sister Obesity Thyroid condition Brother No problems noted. Brother No problems noted. Brother No problems noted. Son No problems noted. 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 Review of Systems Const Details: - Musculoskeletal: Reports pain in lower back radiating to the right leg. - Neurological: Reports sensations of the leg giving out. - Others: Denies any symptoms not discussed. Physical Exam Vital Signs: Last Vital Signs Pulse 88 11/09/24 15:04 Resp 16 11/09/24 15:04 BP 162/93 H 11/09/24 15:04 Pulse Ox 98 11/09/24 15:04 Oxygen Delivery Method Room Air 11/09/24 15:04 BMI result Body Mass Index 34.6 General: awake, alert, oriented. Answers questions appropriately. Fully engaged in examination. Skin: warm, dry, intact HEENT: Normocephalic. Hearing intact. Cardiac: External chest normal in appearance. Respiratory: No cough, audible wheezing or stridor. Abdomen: without gross distension. MS: No obvious swelling or deformities. Able to transition from sit to stand unassisted. Ambulates with bilaterally normal heel strike and toe off SLR pos right Tenderness midline lumbar vertebrae and paraspinal muscles Neurological: Oriented to person, place, time and situation. Thought process intact. No gait abnormalities appreciated. Psychiatric: Appropriate mood and affect. Good judgment and insight. Results Reviewed Results Reviewed: 09/09/24 MR lumbar spine wo/w con Findings: Normal alignment. No acute fracture or pathologic bone lesion. Schmorl's node noted along the inferior endplate of L3. The conus terminates normally at L1. Cauda equina are unremarkable. Somewhat diffuse disc space narrowing and disc desiccation most pronounced at L4-5 and L5-S1. Abnormal enhancement, likely postsurgical, along the decompression bed at L4-L5 posteriorly. There is no epidural abscess. There is mild dural enhancement. Retroperitoneal soft tissues are unremarkable. Individual levels: T12-L3: Unremarkable. L3-L4: Small posterior disc protrusion and facet hypertrophy. Mild bilateral neural foraminal narrowing. L4-L5: Moderately severe central canal stenosis, related to facet hypertrophy, ligamentum flavum thickening and a posterior disc protrusion. There is also severe bilateral neural foraminal narrowing at this level. L5-S1: Left eccentric disc protrusion with facet hypertrophy. Moderate left neural foraminal narrowing. No significant central canal stenosis. Impression: At L4-L5, there is moderately severe central canal stenosis and severe bilateral neural foraminal narrowing. Postsurgical soft tissue enhancement without evidence of abscess or hematoma. Additional multilevel degenerative changes. 02/18/24 MRI LS This examination assumes the presence of 5 lumbar type vertebral bodies. For the purposes of this examination, the L5-S1 intervertebral disc space is visualized on axial series 5 image 24. The normal lumbar lordosis is preserved. Shallow dextrocurvature of the lumbar spine. No significant spondylolisthesis. Schmorl's node along the inferior endplate of L3. Otherwise, lumbar vertebral body heights are maintained. Trace endplate edema at L5-S1. Mild perifacet edema at L4-L5, likely on the basis of facet arthropathy. The conus medullaris and cauda equina nerve roots are unremarkable; the conus terminates at the level of L1. The spinal canal appears narrowed on a congenital basis. L1-L2: No significant spinal canal or neural femoral stenosis. L2-L3: Mild facet degeneration. The spinal canal and neural foramina are patent. L3-L4: Disc bulge and facet arthropathy with ligamentum flavum redundancy. The spinal canal appears mildly narrowed on a congenital basis. Mild narrowing of the bilateral neural foramen. L4-L5: Disc bulge with right foraminal/far lateral disc protrusion. Facet arthropathy with ligamentum flavum redundancy. There is severe spinal canal stenosis with crowding of the cauda equina nerve roots and narrowing of the lateral recesses. Severe narrowing of the right neural foramen with exiting nerve root compression in the neural foramina and far lateral space. Moderate to severe narrowing of the left neural foramen with exiting nerve root impingement. L5-S1: Disc bulge with left subarticular/proximal foraminal disc protrusion. Facet arthropathy with ligamentum flavum redundancy. Prominent epidural fat with tapering of the thecal sac. Asymmetric narrowing of the left lateral recess with mass effect on the descending left S1 nerve root. There is moderate narrowing of the right neural foramen. Moderate to severe narrowing of the left neural foramen. IMPRESSION: The spinal canal appears narrowed on a congenital basis. Severe spinal canal stenosis at L4-L5 with crowding of the cauda equina nerve roots. Severe right neural foraminal stenosis at L4-L5 secondary to a right foraminal disc protrusion. There is associated exiting nerve root compression in the neural foramina and far lateral space. Moderate to severe left neural foraminal stenosis at L4-L5 and L5-S1. Assessment & Plan Assessment & Plan (1) Lumbar radiculopathy: Code(s): M54.16 - Radiculopathy, lumbar region Category: Medical (2) Spinal stenosis: Code(s): M48.00 - Spinal stenosis, site unspecified Category: Medical (3) Neuropathy: Comment: right lower extremity Code(s): G62.9 - Polyneuropathy, unspecified Category: Medical (4) Post laminectomy syndrome: Code(s): M96.1 - Postlaminectomy syndrome, not elsewhere classified Category: Medical Plan Treatment options for the patient's chronic back and right leg pain from lumbar complications include a spinal cord stimulator trial and steroid injections. The stimulator trial involves a minimally invasive procedure disrupting pain signals, offering insights into long-term management, though requiring a mental health evaluation. Interim steroid injections may provide temporary relief and defer further intervention. The patient is advised to consider these options after reviewing detailed information. I discussed with the patient the pain's recurrence after initial improvement post-decompression surgery. We explored a spinal cord stimulator trial, highlighting minimal invasiveness, reversibility, and potential benefits in di srupting pain signals. Risks include general surgical risks, being reversible if needed. We also discussed steroid injections offering a few months of pain relief, possibly deferring further intervention until after summer. I outlined specific insurance requirements, including a mental health evaluation to assure safety and compliance. The patient received information to further investigate and has chosen to proceed initially with a steroid injection. [facility] brochure provided to patient. We will schedule for right L4-5 epidural steroid injection with local anesthetic under fluoroscopy guidance. Patient was informed and verbally consented to the use of an ambient scribe for clinic note documentation during this visit. Patient Instructions: - Consider the benefits and risks of a spinal cord stimulator and steroid injection. - Review provided materials about these procedures. - Prepare for a steroid injection once insurance approves. - Consult primary care for disability and mobility paperwork, if needed. - Maintain prescribed home exercises and physical therapy within manageable limits. - Contact primary care provider for any worsening of condition or new symptoms. - Follow up as scheduled after the steroid injection to assess its effectiveness. Coding Level of Care Code Est Pt Level 3 (88527) Complex EM visit Add On G2211 Diagnoses Lumbar radiculopathy M54.16 Spinal stenosis M48.00 Neuropathy G62.9 Post laminectomy syndrome M96.1
[2024-11-09 15:04] VITALS: BP 162/93; PULSE 88; RESP 16; O2SAT 98; BMI 34.6
== END 2024-11-09 15:31 | disposition home or self-care (01) ==
LOC: HO.PMC 14:57
PROVIDERS: PCP Nurse Practitioner Family; Visit Provider Registered Nurse Emergency
DX: M54.16 Radiculopathy, lumbar region (principal); M48.00 Spinal stenosis, site unspecified; G62.9 Polyneuropathy, unspecified; M96.1 Postlaminectomy syndrome, not elsewhere classified
CPT/HCPCS: 99213

== ENCOUNTER → 2024-11-09 14:56 | Outpatient (BNVA) | payer BC, SELFPAY | PROVIDERS: PCP Nurse Practitioner Family; Visit Provider Registered Nurse Emergency ==

== ENCOUNTER 2025-01-03 06:20 | Outpatient (REF) | payer BC, SELFPAY ==
--- NOTE | ~2025-01-03 | FL_ITS ---
EXAMINATION: FL GUIDANCE ONLY HISTORY: M54.16 - Radiculopathy, lumbar region COMPARISON: Correlation is made to plain films of the lumbar spine dated 06/13/2024. TECHNIQUE: Fluoroscopy time: 0.2 minutes. Cumulative Dose: 4.82 mGy. DAP: 0.0733 mGym2 Images: 3. FINDINGS: Fluoroscopic spot films of the lumbar spine demonstrate a needle in the region of the right L4-5 facet joint. According to the technologist's notes, the exam was not completed due to equipment failure. FL/FL guidance in treatment room IMPRESSION: Fluoroscopy during procedure. Please see procedure report for additional information. Electronically signed by: Shay Elaine MD 01/03/2025 12:04 PM EDT
== END 2025-01-03 06:21 | disposition home or self-care (01) ==
LOC: CF 06:20
PROVIDERS: Visit Provider Anesthesiology
DX: M54.16 Radiculopathy, lumbar region (principal); Z53.29 Procedure and treatment not carried out because of patient's decision for other reasons
CPT/HCPCS: 64483; J2003; J3301; Q9967

== ENCOUNTER 2025-01-03 08:46 | Outpatient (AMB) | payer BC, SELFPAY ==
--- NOTE | 2025-01-03 08:47 | MHC.OFFVIS ---
Vital Signs 01/03/25 08:50 BP 143/98 H Blood Pressure Location Lt brachial Position Sitting Respiration 16 Pulse 85 Pulse Source Pulse Oximeter Pulse Oximetry (%) 97 Intake Visit Reasons: RIGHT L4, L5 TARUN Allergies No Known Allergies (No Known Allergies*) Allergy (Verified 11/09/24 15:05) [facility] Medical History Sleep apnea Spinal stenosis Neuropathy Liver fibrosis Steatosis, liver Psoriasis BMI 38.0-38.9,adult Vitamin B12 deficiency Vitamin A deficiency Vitamin D deficiency Back pain Hypertension Non-insulin dependent type 2 diabetes mellitus Morbid obesity Surgical History S/P laparoscopic sleeve gastrectomy Hx of colonoscopy Family History Mother No problems noted. Father No problems noted. Sister No problems noted. Sister No problems noted. Sister Obesity Thyroid condition Brother No problems noted. Brother No problems noted. Brother No problems noted. Son No problems noted. 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 Physical Exam Vital Signs: Last Vital Signs Pulse 85 01/03/25 08:50 Resp 16 01/03/25 08:50 BP 143/98 H 01/03/25 08:50 Pulse Ox 97 01/03/25 08:50 Assessment & Plan Assessment & Plan (1) Lumbar radiculopathy: Code(s): M54.16 - Radiculopathy, lumbar region Category: Medical Plan Attempts at transforaminal right L4- L5 epidural steroid injection Informed consent was thoroughly explained to the patient before the procedure. The risks were delineated as bleeding infection peripheral nerve damage spinal cord damage and headache. ? The patient came to the operating room.? He was positioned prone on operating table with a pillow under his abdomen.? Time-out was performed delineating correct site and side of the procedure, nature of the injection, name and date of of the patient. The lower back of the patient was prepped with ChloraPrep and draped with sterile utility towels.? C-arm was brought over the operating field and sq picture of L4 vertebra were demonstrated on the screen.? The right side was chosen 1st as the side of the injection.? Tilting machine ipsilateral to the right at the level of L4 1st the most prominent picture of the right pedicle was obtained on the screen.? 3 mm below the level of the lowest point of the pedicle projection to the skin small amount of lidocaine 1% 2 cc was injected to anesthetize the skin.? After that 5 in 22 gauge Quincke point needle was inserted through the skin wheal and was advanced to were the L4-L5 foramina on anterior posterior , lateral and oblique views intermittently.? When tip of the needle entered foramina projection on AP view attempted to perform and unfortunately at this moment the C-arm fluoroscopy machine stopped to function, it was not showing any images. The radiology department's went to replace the broken machine with another one, patient was left on the table with the needle in his back. After several minutes of waiting he demanded to remove the needle and terminate the procedure. The needle was removed sterile Band-Aid was applied. The procedure will be rescheduled. Orders: Orders FL guidance in treatment room Today M54.16 - Radiculopathy, lumbar region Coding Level of Care Code Procedure Only Diagnoses Lumbar radiculopathy M54.16
[2025-01-03 08:50] VITALS: BP 143/98; PULSE 85; RESP 16; O2SAT 97
== END 2025-01-03 09:16 | disposition home or self-care (01) ==
LOC: HO.PMCPRC 08:46
PROVIDERS: PCP Nurse Practitioner Family; Visit Provider Anesthesiology
DX: M54.16 Radiculopathy, lumbar region (principal)
CPT/HCPCS: 64483

== ENCOUNTER 2025-01-24 06:21 | Outpatient (REF) | payer BC, SELFPAY ==
--- NOTE | ~2025-01-24 | FL_ITS ---
EXAMINATION: FL GUIDANCE ONLY HISTORY: M54.16 - Radiculopathy, lumbar region COMPARISON: None available. TECHNIQUE: Fluoroscopy time: 0.6 minutes. Cumulative Dose: 12.1 mGy. DAP: 0.159 mGym2 Images: 2. FINDINGS: Fluoroscopic spot films of the lumbar spine in the AP projection demonstrate needles and contrast material in the regions of the bilateral L4-5 facet joints. FL/FL guidance in treatment room IMPRESSION: Fluoroscopy during procedure. Please see procedure report for additional information. Electronically signed by: Shay Elaine MD 01/24/2025 10:39 AM EDT
== END 2025-01-24 06:22 | disposition home or self-care (01) ==
LOC: CF 06:21
PROVIDERS: Visit Provider Anesthesiology
DX: M54.16 Radiculopathy, lumbar region (principal)
CPT/HCPCS: 64483; J2003; J3301; Q9967

== ENCOUNTER 2025-01-24 08:07 | Outpatient (AMB) | payer BC, SELFPAY ==
--- NOTE | 2025-01-24 08:18 | A.OFFVIS_ITS ---
Vital Signs 01/24/25 08:19 01/24/25 08:47 Height 5 ft 9 in 5 ft 9 in Weight 234 lb 234 lb BMI 34.6 34.6 BP 143/98 H 142/93 H Blood Pressure Location Lt brachial Lt brachial Position Sitting Sitting Respiration 16 18 Pulse 67 70 Pulse Source Pulse Oximeter Pulse Oximeter Pulse Oximetry (%) 98 98 Oxygen Delivery Method Room Air Room Air Intake Visit Reasons: Bilateral L4- L5 TARUN Allergies No Known Allergies (No Known Allergies*) Allergy (Verified 11/09/24 15:05) [facility] Medical History Sleep apnea Spinal stenosis Neuropathy Liver fibrosis Steatosis, liver Psoriasis BMI 38.0-38.9,adult Vitamin B12 deficiency Vitamin A deficiency Vitamin D deficiency Back pain Hypertension Non-insulin dependent type 2 diabetes mellitus Morbid obesity Surgical History S/P laparoscopic sleeve gastrectomy Hx of colonoscopy Family History Mother No problems noted. Father No problems noted. Sister No problems noted. Sister No problems noted. Sister Obesity Thyroid condition Brother No problems noted. Brother No problems noted. Brother No problems noted. Son No problems noted. 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 Physical Exam Vital Signs: Last Vital Signs Pulse 70 01/24/25 08:47 Resp 18 01/24/25 08:47 BP 142/93 H 01/24/25 08:47 Pulse Ox 98 01/24/25 08:47 Oxygen Delivery Method Room Air 01/24/25 08:47 BMI result Body Mass Index 34.6 Assessment & Plan Assessment & Plan (1) Lumbar radiculopathy: Code(s): M54.16 - Radiculopathy, lumbar region Category: Medical Plan Bilateral transforaminal L4- L5 epidural steroid injection Informed consent was thoroughly explained to the patient before the procedure. The risks were delineated as bleeding infection peripheral nerve damage spinal cord damage and headache. ? The patient came to the operating room.? He was positioned prone on operating table with a pillow under his abdomen.? Time-out was performed delineating correct site and side of the procedure, nature of the injection, name and date of of the patient. The lower back of the patient was prepped with ChloraPrep and draped with sterile utility towels.? C-arm was brought over the operating field and sq picture of L4 vertebra were demonstrated on the screen.? The right side was chosen 1st as the side of the injection.? Tilting machine ipsilateral to the right at the level of L4 1st the most prominent picture of the right pedicle was obtained on the screen.? 3 mm below the level of the lowest point of the pedicle projection to the skin small amount of lidocaine 1% 2 cc was injected to anesthetize the skin.? After that 5 in 22 gauge Quincke point needle was inserted through the skin wheal and was advanced to were the L4-L5 foramina on anterior posterior , lateral and oblique views intermittently.? When tip of the needle entered foramina the patient has started to complain on paresthesia going down the right leg. The needle was withdrawn and on the oblique image superior articular process of L5 was chosen as a next target. Lateral border of superior articular process of L5 on the right was chosen as sequential target of the injection. Projection of the target to the skin was injected with small amount of lidocaine 1% forming a skin wheal. 22 gauge 5 in needle was inserted through the skin and advanced toward the target under intermittent anterior posterior and oblique views. When tip of the needle gently contacted of the lateral border of the superior articular process of L5 the needle was deviated slightly lateral advanced 2 mm and deviated again slightly medial. Injection of the contrast demonstrated epidural anterior spread of the contrast. No intravascular and no intrathecal spread of the contrast was noted. Injection of the treatment solution of the lidocaine 1% 3 cc mixed with Kenalog 40 mg was performed. Upon completion of the injection the needle was withdrawn and procedure was repeated on the left side in mirroring fashion with superior articular process of L5 on the left as the target at this time. Again injection of the contrast did not demonstrate any intra vascular or intrathecal spread of the contrast. The needle was withdrawn. The patient tolerated the procedure well. Upon completion of the injection which consisted with lidocaine 1% 3 cc and Kenalog 40 mg the needle was removed, total dose of Kenalog was 80 mg for both sides. Band-Aids were applied. Orders: Orders FL guidance in treatment room Today M54.16 - Radiculopathy, lumbar region Coding Level of Care Code Procedure Only Diagnoses Lumbar radiculopathy M54.16
[2025-01-24 08:19] VITALS: BP 143/98; PULSE 67; RESP 16; O2SAT 98; BMI 34.6
[2025-01-24 08:47] VITALS: BP 142/93; PULSE 70; RESP 18; O2SAT 98; BMI 34.6
== END 2025-01-24 08:45 | disposition home or self-care (01) ==
LOC: HO.PMCPRC 08:07
PROVIDERS: PCP Nurse Practitioner Family; Visit Provider Anesthesiology
DX: M54.16 Radiculopathy, lumbar region (principal)
CPT/HCPCS: 64483

== ENCOUNTER 2025-03-01 09:38 | Outpatient (AMB) | payer BC, SELFPAY ==
[2025-03-01 09:44] VITALS: BP 150/97; PULSE 80; RESP 16; O2SAT 99; BMI 33.5
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
== END 2025-03-01 10:04 | disposition home or self-care (01) ==
LOC: HO.PMC 09:39
PROVIDERS: PCP Nurse Practitioner Family; Visit Provider Registered Nurse Emergency
DX: M54.16 Radiculopathy, lumbar region (principal); M48.00 Spinal stenosis, site unspecified; G62.9 Polyneuropathy, unspecified; M96.1 Postlaminectomy syndrome, not elsewhere classified
CPT/HCPCS: 99213